=== PATIENT | male | born 1945 | race Caucasian/White ===

== ENCOUNTER → 2016-09-10 | Outpatient (CLI) | payer BC ==
[~2016-09-10] MED LIST: ASPCH81X PO; ASPI81TA82 PO; ATOR-24 PO; CHOL200010 PO; COEN1CAP17 PO; FLAXOIL2 PO; INSPMPHMLG; LEVO150T PO; LEVO200T PO; LISI20TA3 PO; LISI40TA PO; MULT-513 PO; OMEG100046 PO; ROSU40TA PO
--- NOTE | 2016-09-10 09:33 | DIAGNOSTIC IMAGING REPORT ---
ULTRASOUND EXAM AAA SCREEN CLINICAL HISTORY: AAA SCREENING,X-SMOKER COMPARISON STUDY: CT scan dated 09/13/2012 FINDINGS: The proximal aorta was nonvisualized. There is no evidence of aortic dilatation involving the mid or distal abdominal aorta. The maximal aortic diameter was 2 cm. There is no evidence of iliac artery aneurysm. IMPRESSION: No evidence of abdominal aortic aneurysm. Electronically signed by: Derek Guerrier M.D. 09/10/2016 9:31 AM Dictated Date/Time: 09/10/2016 8:35 AM
== END | disposition home or self-care (01) ==
LOC: C.ULTR 07:43
PROVIDERS: ATTEND Family Medicine
DX: E11.9 Type 2 diabetes mellitus without complications (principal); I10 Essential (primary) hypertension; E03.9 Hypothyroidism, unspecified; E78.5 Hyperlipidemia, unspecified

== ENCOUNTER 2017-02-26 09:50 | Emergency (ER) | payer BC ==
[~2017-02-26] VITALS: Ht 180.3 cm; Wt 83.3 kg
[~2017-02-26 09:50] MED LIST changes: -ASPI81TA82 PO; -ATOR-24 PO; -FLAXOIL2 PO; -LEVO200T PO; -LISI20TA3 PO; -OMEG100046 PO
[2017-02-26 09:58] VITALS: TEMP 36.6; O2SAT 100; Ht 180.3 cm; Wt 83.3 kg
[2017-02-26] MEDS ORDERED: SODIUM CHLORIDE 0.9% 1000ML 1,000 ML IV STA (09:59)
[2017-02-26 10:09] LABS: BASO % 0.4 %; BASO ABS # 0.03 K/uL (0-0.2); COMPLETE YES; EOS % 2.5 %; IG% 0.4 %; LYMPH ABS # 0.98 K/uL (1.2-3.4); MEAN CELL VOLUME 92.6 fL (80-100); MEAN CORPUSCULAR HEMOGLOBIN 30.7 pg (25-34); MEAN CORPUSCULAR HGB CONC 33.1 g/dl (32-36); MEAN PLATELET VOLUME 9.9 fL (7.4-10.4); MONO % 10.3 %; NEUT % 74.4 %; PLATELET COUNT 170 K/uL (130-400); RED BLOOD COUNT 3.78 M/uL (4.7-6.1); WHITE BLOOD COUNT 8.16 K/uL (4.8-10.8)
[2017-02-26 10:20] LABS: INR 1.1 (0.9-1.1); PARTIAL THROMBOPLASTIN RATIO 0.9; PROTHROMBIN TIME (PATIENT) 11.9 SECONDS (9.0-12.0)
--- NOTE | 2017-02-26 10:27 | EMERGENCY ROOM VISIT NOTE ---
History Report prepared by Kimberley: Kelsy Holt Under the Supervision of: Dr. Krishna Lynn D.O. First contact with patient: 09:51 Stated Complaint: SYNCOPE - N/V History of Present Illness The patient is a 71 year old male who presents to the Emergency Room with complaints of an episode of syncope occurring DISPATCH COORDINATOR. The patient was getting out of the shower when he suddenly began to feel dizzy, nauseated, and unwell. He denies feeling like the room was spinning. He denies any memory of falling. The next thing he remembers is waking up on the ground. heard him fall and then a few moments later he began to call for help. The patient was brought to the ED by ambulance for further evaluation. He was given Zofran PO en route and states that this has helped to alleviate some of his nausea. He reports that sitting up makes him feel lightheaded. He states that his mouth feels very dry at this time and he is feeling just generally weak all over. He notes that he has had a recent cold with coughing and chills. The patient denies any injury from his fall. He denies headache, fevers, neck pain, chest pain, shortness of breath, back pain, abdominal pain, melena, and hematochezia. He has a history of DM and his BSG was 163 DISPATCH COORDINATOR per EMS. The patient had a similar syncopal episode 2 weeks ago. He was seen in the ED at that time and was diagnosed with dehydration. He followed up with Dr. Quinteros of cardiology and states that everything was normal at that appointment. He denies any recent changes to his medications or any new medications. Source of History: patient, spouse/significant other, EMS Onset: DISPATCH COORDINATOR Position: other (global) Quality: other (syncope) Timing: other (episode) Associated Symptoms: + LOC, + chills, + cough, + nausea, + weakness, No fevers, No headache, No neck pain, No chest pain, No SOB, No abdominal pain, No back pain, No melena, No hematochezia Note: Pt notes dizziness. Review of Systems See HPI for pertinent positives & negatives. A total of 10 systems reviewed and were otherwise negative. Past Medical & Surgical Medical Problems: (1) Acute gastritis (2) DIAB JEANNETTE WO COMPL, TYPE I [JUVENILE TYPE], NOT UNCNTRLD (3) History of prostate cancer (4) HYPERLIPIDEMIA NEC/NOS (5) HYPERTENSION NOS (6) Partial small bowel obstruction Family History Heart disease Social History Smoking Status: Unknown if Ever Smoked Alcohol Use: none Drug Use: none Marital Status: Housing Status: lives with family Occupation Status: retired Current/Historical Medications Scheduled Aspirin (Aspirin Chewable), 81 MG PO BID Cholecalciferol (Vitamin D), 2,000 UNITS PO DAILY Coenzyme Q10 (Ubidecarenone) (Co Q 10), 200 MG PO DAILY Insulin Human Lispro (Insulin Humalog Pump ), 1 EA N/A UD Levothyroxine Sodium (Synthroid), 150 MCG PO DAILY Lisinopril (Prinivil), 40 MG PO DAILY Multivitamins/Minerals (Mvi With Minerals), 1 TAB PO DAILY Rosuvastatin Calcium (Crestor), 40 MG PO HS Allergies Coded Allergies: No Known Allergies (Unverified , 02/26/17) Physical Exam Vital Signs Date Time Temp Pulse Resp B/P (MAP) Pulse Ox O2 Delivery O2 Flow Rate FiO2 02/26/17 13:30 88 18 154/76 98 Room Air 02/26/17 13:04 86 18 147/71 94 Room Air 02/26/17 12:06 88 16 144/73 94 Room Air 02/26/17 11:30 88 14 155/71 95 Room Air 02/26/17 10:43 87 18 128/66 99 Room Air 02/26/17 10:17 75 126/56 85 138/67 02/26/17 10:05 78 02/26/17 09:58 100 Room Air 02/26/17 09:58 36.6 79 14 120/56 100 Room Air Physical Exam GENERAL: Patient is awake, alert, and in no acute distress. Patient is resting comfortably and showing no signs of anxiety EYES: The conjunctivae are clear. The pupils are round and reactive. EARS, NOSE, MOUTH AND THROAT: The nose is without any evidence of any deformity. Mucous membranes are moist tongue is midline NECK: The neck is nontender and supple. RESPIRATORY: Normal respiratory effort is noted there is no evidence of wheezing rhonchi or rales CARDIOVASCULAR: Regular rate and rhythm noted there no murmurs rubs or gallops normal S1 normal S2 GASTROINTESTINAL: The abdomen is soft. Bowel sounds are present in all quadrants. Abdomen is nontender BACK: No midline tenderness or or step-off noted range of motion in flexion extension as well as rotation no signs of muscle spasm noted MUSCULOSKELETAL/EXTREMITIES: There is no evidence of gross deformity full range of motion is noted in the hips and shoulders SKIN: There were linear abrasions over the thoracic spine superficially, no tenderness or bleeding was noted. There is no obvious evidence of any rash. There are no petechiae, pallor or cyanosis noted. NEUROLOGIC: Patient is awake alert and oriented x3 strength is symmetric patellar reflexes are 2+ bilaterally Medical Decision & Procedures ER Provider Diagnostic Interpretation: Radiology results as stated below per my review and radiologist interpretation: CT HEAD WITHOUT CONTRAST (CT) CLINICAL HISTORY: R mental status, weakness, syncope, nausea, vomiting. COMPARISON STUDY: 09/13/2012 TECHNIQUE: Axial CT of the brain is performed from the vertex to the skull base. IV contrast was not administered for this examination. A dose lowering technique was utilized adhering to the principles of ALARA. CT DOSE: 614.27 mGy.cm FINDINGS: No intra or extra-axial mass lesions are visualized. There is no CT evidence of acute cortical infarction. There is no evidence of midline shift. There is no acute hemorrhage. No calvarial fractures are visualized. There are patchy white matter hypodensities likely on a small vessel basis. There is no evidence of pathologic ventricular dilatation. There is mild mucosal thickening within the left maxilla sinus. There is a small right maxillary sinus air-fluid level. IMPRESSION: 1. Inflammatory changes within the maxillary sinuses with a small right maxillary sinus air-fluid level 2. No acute intracranial findings. Electronically signed by: Derek Guerrier M.D. 02/26/2017 10:44 AM Dictated Date/Time: 02/26/2017 10:42 AM CHEST ONE VIEW PORTABLE CLINICAL HISTORY: Altered mental status. Weakness. COMPARISON STUDY: 02/09/2017 FINDINGS: The cardiac and mediastinal contours are normal. There is no evidence of focal pulmonary consolidation. There is no evidence of failure. No pleural effusions are visualized.[ Linear opacities the left lung base are felt to be atelectatic. IMPRESSION: Minimal left basilar atelectatic change. No active disease in the chest. Electronically signed by: Derek Guerrier M.D. 02/26/2017 10:39 AM Dictated Date/Time: 02/26/2017 10:39 AM Laboratory Results 02/26/17 09:59 Red Blood Count 3.78, Mean Corpuscular Volume 92.6, Mean Corpuscular Hemoglobin 30.7, Mean Corpuscular Hemoglobin Concent 33.1, Mean Platelet Volume 9.9, Neutrophils (%) (Auto) 74.4, Lymphocytes (%) (Auto) 12.0, Monocytes (%) (Auto) 10.3, Eosinophils (%) (Auto) 2.5, Basophils (%) (Auto) 0.4, Neutrophils # (Auto ) 6.08, Lymphocytes # (Auto) 0.98, Monocytes # (Auto) 0.84, Eosinophils # (Auto ) 0.20, Basophils # (Auto) 0.03 02/26/17 09:59 Test 02/26/17 09:39 02/26/17 09:59 02/26/17 13:46 Lyme Disease IgG Antibody NEG (NEG) Lyme Disease IgM Antibody NEG (NEG) White Blood Count 8.16 K/uL (4.8-10.8) Red Blood Count 3.78 M/uL (4.7-6.1) Hemoglobin 11.6 g/dL (14.0-18.0) Hematocrit 35.0 % (42-52) Mean Corpuscular Volume 92.6 fL (80-100) Mean Corpuscular Hemoglobin 30.7 pg (25-34) Mean Corpuscular Hemoglobin Concent 33.1 g/dl (32-36) Platelet Count 170 K/uL (130-400) Mean Platelet Volume 9.9 fL (7.4-10.4) Neutrophils (%) (Auto) 74.4 % Lymphocytes (%) (Auto) 12.0 % Monocytes (%) (Auto) 10.3 % Eosinophils (%) (Auto) 2.5 % Basophils (%) (Auto) 0.4 % Neutrophils # (Auto) 6.08 K/uL (1.4-6.5) Lymphocytes # (Auto) 0.98 K/uL (1.2-3.4) Monocytes # (Auto) 0.84 K/uL (0.11-0.59) Eosinophils # (Auto) 0.20 K/uL (0-0.5) Basophils # (Auto) 0.03 K/uL (0-0.2) RDW Standard Deviation 45.2 fL (36.4-46.3) RDW Coefficient of Variation 13.4 % (11.5-14.5) Immature Granulocyte % (Auto) 0.4 % Immature Granulocyte # (Auto) 0.03 K/uL (0.00-0.02) Prothrombin Time 11.9 SECONDS (9.0-12.0) Prothromb Time International Ratio 1.1 (0.9-1.1) Activated Partial Thromboplast Time 24.6 SECONDS (21.0-31.0) Partial Thromboplastin Ratio 0.9 Anion Gap 9.0 mmol/L (3-11) Est Creatinine Clear Calc Drug Dose 70.0 ml/min Estimated GFR () 84.3 Estimated GFR (Non- 72.7 BUN/Creatinine Ratio 14.9 (10-20) Calcium Level 8.9 mg/dl (8.5-10.1) Phosphorus Level 2.1 mg/dl (2.5-4.9) Magnesium Level 2.0 mg/dl (1.8-2.4) Total Bilirubin 0.6 mg/dl (0.2-1) Direct Bilirubin 0.1 mg/dl (0-0.2) Aspartate Amino Transf (AST/SGOT) 21 U/L (15-37) Alanine Aminotransferase (ALT/SGPT) 13 U/L (12-78) Alkaline Phosphatase 75 U/L (45-117) Total Creatine Kinase 98 U/L (39-308) Creatine Kinase MB 1.7 ng/ml (0.5-3.6) Creatine Kinase MB Ratio 1.7 (0-3.0) Troponin I < 0.015 ng/ml (0-0.045) Total Protein 6.9 gm/dl (6.4-8.2) Albumin 3.3 gm/dl (3.4-5.0) Thyroid Stimulating Hormone (TSH) 4.890 uIu/ml (0.300-4.500) Free Thyroxine 1.72 ng/dl (0.80-1.60) Urine Color YELLOW Urine Appearance CLEAR (CLEAR) Urine pH 6.5 (4.5-7.5) Urine Specific [place]ley 1.014 (1.000-1.030) Urine Protein NEG (NEG) Urine Glucose (UA) 1+ (NEG) Urine Ketones 2+ (NEG) Urine Occult Blood NEG (NEG) Urine Nitrite NEG (NEG) Urine Bilirubin NEG (NEG) Urine Urobilinogen NEG (NEG) Urine Leukocyte Esterase NEG (NEG) Laboratory results per my review. Medications Administered Medications (Trade) Dose Ordered Sig/Stanley Route Start Time Stop Time Status Last Admin Dose Admin Sodium Chloride 1,000 ml @ 999 mls/hr Q1H1M STAT IV 02/26/17 09:59 02/26/17 10:59 DC 02/26/17 10:16 999 MLS/HR Ondansetron HCl (Zofran Inj) 4 mg NOW STAT IV 02/26/17 10:46 02/26/17 10:47 DC 02/26/17 10:59 4 MG ECG Indication: syncope Rate (beats per minute): 66 Rhythm: sinus with SA Findings: no acute ischemic change, no ectopy Comparison ECG Date: 02/09/17 Change: SA is new compared to previous. ED Course 0951: The patient was evaluated in room B3B. A complete history and physical examination were performed. 0959: NSS 1000 ml @ 999 mls/hr IV 1046: Zofran 4 mg IV 1145: Upon reevaluation the patient is resting comfortably. He is still getting lightheaded when he sits up and his blood pressure decreases. I will consult cardiology. 1203: I discussed the case with Dr. Carbajal of cardiology. Dr. Carbajal will come to the ED to evaluate the patient. 1259: I spoke with Dr. Carbajal again at this time regarding the patient's treatment plan. He felt that the patient could be discharged and follow-up as an outpatient if he is feeling better. 1323: I reassessed the patient at this time. He is feeling better and resting comfortably. I discussed the results and treatment plan with the patient. I answered all pertaining questions that he had. He expressed understanding and verbalized agreement. The patient will be discharged home. Medical Decision Differential diagnosis: Etiologies such as vasovagal event, infection, hypoglycemia, electrolyte abnormalities, cardiac sources, intracerebral event, toxicologic, neurologic, as well as others were entertained. Nursing notes reviewed. Additional history is obtained from the patient's family member. The patient is a 71-year-old male who presented to the emergency department after having a syncopal episode. The patient continued to have nausea upon arrival to the emergency. He had some episodes of bradycardia but he did not have a block noted on EKG or on cardiac rhythm monitoring. I discussed the patient's laboratory and radiographic studies with him. He had symptoms upon standing and was treated with IV fluids. He was seen in our emergency department recently with similar complaints. I discussed his case with the on- call [facility] orthopedic physician assistant. He was evaluated in the emergency department by the cardiology's. The patient had an echocardiogram previously. I discussed follow-up with the patient and encouraged him to rest and avoid any strenuous activity. He was also encouraged to call his primary care physician in the morning to schedule a follow-up appointment. Otherwise she was encouraged to return to the emergency Department immediately if symptoms change worsen or the need arises. Medication Reconcilliation Current Medication List: was personally reviewed by me Blood Pressure Screening Patient's blood pressure: Normal blood pressure Consults Time Called: 1155 Consulting Physician: Dr. Carbajal Returned Call: 1203 I discussed the case with Dr. Carbajal of cardiology. Dr. Crabajal will come to the ED to evaluate the patient. Additional Consults: Time Called: 1259 Consulted Physician: Dr. Carbajal Returned Call: 1259 Additional Comments: I spoke with Dr. Carbajal again at this time regarding the patient's treatment plan. He felt that the patient could be discharged and follow-up as an outpatient if he is feeling better. Impression Primary Impression: Syncope Additional Impressions: Sinus arrhythmia Back contusion Back abrasion Scribe Attestation The scribe's documentation has been prepared under my direction and personally reviewed by me in its entirety. I confirm that the note above accurately reflects all work, treatment, procedures, and medical decision making performed by me. Departure Information Dispostion Home / Self-Care Referrals Kehinde Morales M.D. (PCP) Forms HOME CARE DOCUMENTATION FORM, IMPORTANT VISIT INFORMATION Patient Instructions My [facility], Syncope Additional Instructions Rest and avoid any strenuous activity. Call your family to schedule a follow -up appointment. Drink plenty clear liquids. Return to the emergency department immediately if symptoms change worsen or the need arises. Problem Qualifiers Primary Impression: Syncope Syncope type: unspecified Qualified Codes: R55 - Syncope and collapse Additional Impressions: Back contusion Encounter type: initial encounter Laterality: unspecified laterality Qualified Codes: S20.229A - Contusion of unspecified back wall of thorax, initial encounter Back abrasion Encounter type: initial encounter Laterality: unspecified laterality Qualified Codes: S20.419A - Abrasion of unspecified back wall of thorax, initial encounter
[2017-02-26 10:33] LABS: ALT/SGPT 13 U/L (12-78); BLOOD UREA NITROGEN 15 mg/dl (7-18); BUN/CREATININE RATIO 14.9 (10-20); CALCIUM 8.9 mg/dl (8.5-10.1); CARBON DIOXIDE 25 mmol/L (21-32); CHLORIDE 102 mmol/L (98-107); CREATININE 1.03 mg/dl (0.60-1.40); GLUCOSE 164 mg/dl (70-99); POTASSIUM 4.1 mmol/L (3.5-5.1); SODIUM 136 mmol/L (136-145)
[2017-02-26 10:41] LABS: ALKALINE PHOSPHATASE 75 U/L (45-117); AST/SGOT 21 U/L (15-37); CKMB/CK RATIO 1.7 (0-3.0); PHOSPHORUS 2.1 mg/dl (2.5-4.9)
--- NOTE | 2017-02-26 10:41 | DIAGNOSTIC IMAGING REPORT ---
CHEST ONE VIEW PORTABLE CLINICAL HISTORY: Altered mental status. Weakness. COMPARISON STUDY: 02/09/2017 FINDINGS: The cardiac and mediastinal contours are normal. There is no evidence of focal pulmonary consolidation. There is no evidence of failure. No pleural effusions are visualized.[ Linear opacities the left lung base are felt to be atelectatic. IMPRESSION: Minimal left basilar atelectatic change. No active disease in the chest. Electronically signed by: Derek Guerrier M.D. 02/26/2017 10:39 AM Dictated Date/Time: 02/26/2017 10:39 AM
--- NOTE | 2017-02-26 10:45 | DIAGNOSTIC IMAGING REPORT ---
CT HEAD WITHOUT CONTRAST (CT) CLINICAL HISTORY: R mental status, weakness, syncope, nausea, vomiting. COMPARISON STUDY: 09/13/2012 TECHNIQUE: Axial CT of the brain is performed from the vertex to the skull base. IV contrast was not administered for this examination. A dose lowering technique was utilized adhering to the principles of ALARA. CT DOSE: 614.27 mGy.cm FINDINGS: No intra or extra-axial mass lesions are visualized. There is no CT evidence of acute cortical infarction. There is no evidence of midline shift. There is no acute hemorrhage. No calvarial fractures are visualized. There are patchy white matter hypodensities likely on a small vessel basis. There is no evidence of pathologic ventricular dilatation. There is mild mucosal thickening within the left maxilla sinus. There is a small right maxillary sinus air-fluid level. IMPRESSION: 1. Inflammatory changes within the maxillary sinuses with a small right maxillary sinus air-fluid level 2. No acute intracranial findings. Electronically signed by: Derek Guerrier M.D. 02/26/2017 10:44 AM Dictated Date/Time: 02/26/2017 10:42 AM
[2017-02-26] MEDS ORDERED: ONDANSETRON INJ 2 MG/ML 2 ML VIAL IV STA (10:46)
[2017-02-26 11:36] LABS: LYME DISEASE AB IGG NEG (NEG); LYME DISEASE AB IGM NEG (NEG)
[2017-02-26 13:30] VITALS: BP 154/76; PULSE 88; O2SAT 98
[2017-02-26 14:18] LABS: URINE APPEARANCE CLEAR (CLEAR); URINE BILIRUBIN NEG (NEG); URINE COLOR YELLOW; URINE NITRITE NEG (NEG); URINE PH 6.5 (4.5-7.5); URINE SPECIFIC GRAVITY 1.014 (1.000-1.030); UROBILINOGEN NEG (NEG)
[2017-02-26 14:22] LABS: MANUAL MICROSCOPIC REQUIRED? NO; REVIEW REQ? NO
== END 2017-02-26 14:07 | disposition home or self-care (01) ==
LOC: EDBD 09:50 → C.EDB 09:51
DX: R55 Syncope and collapse (principal); I49.8 Other specified cardiac arrhythmias; S20.229A Contusion of unspecified back wall of thorax, initial encounter; S20.419A Abrasion of unspecified back wall of thorax, initial encounter; W19.XXXA Unspecified fall, initial encounter; I10 Essential (primary) hypertension; E10.9 Type 1 diabetes mellitus without complications; E78.5 Hyperlipidemia, unspecified; K56.609 Unspecified intestinal obstruction, unspecified as to partial versus complete obstruction; Z85.46 Personal history of malignant neoplasm of prostate; Z87.19 Personal history of other diseases of the digestive system; Z79.82 Long term (current) use of aspirin; Z79.4 Long term (current) use of insulin; Z79.899 Other long term (current) drug therapy; Z82.49 Family history of ischemic heart disease and other diseases of the circulatory system

== ENCOUNTER → 2017-06-19 | Outpatient (CLI) | payer BC ==
--- NOTE | 2017-06-19 12:43 | DIAGNOSTIC IMAGING REPORT ---
NUCLEAR GASTRIC EMPTYING STUDY HISTORY: Diabetes. Assess for gastroparesis. COMPARISON: Abdomen and pelvis CT 09/13/2012. TECHNIQUE: Following the oral administration of 1.1 mCi of technetium 99m sulfur colloid in egg sandwich and 8 ounces of water, static abdominal images are obtained anteriorly and posteriorly at 0 minutes, 1 hour, 2 hour, and 4 hour time intervals. Gastric emptying was calculated utilizing the geometric mean method. FINDINGS: There is approximately 70% activity remaining at the 1 hour time interval (normal is less than 90%), 43% remaining at the 2 hour time interval (normal is less than 60%), and 0% activity remaining at the 4 hour time interval (normal is less than 10%). IMPRESSION: No evidence for delayed gastric emptying. Electronically signed by: Danie Ramirez M.D. 06/19/2017 12:42 PM Dictated Date/Time: 06/19/2017 12:41 PM
== END | disposition home or self-care (01) ==
LOC: C.NUCL 07:52
PROVIDERS: ATTEND Internal Medicine
DX: E10.9 Type 1 diabetes mellitus without complications (principal); Z96.41 Presence of insulin pump (external) (internal)

== ENCOUNTER 2024-05-27 10:00 | Observation (INO) ==
--- NOTE | 2024-05-27 10:32 | Emergency Department Note ---
Impression & Plan Syncope Admission ED Provider Note HPI: History obtained from patient. The patient is a 78-year-old gentleman with history of insulin-dependent diabetes, presents the emergency department after syncopal event this morning. Patient states he got up to go to the bathroom in his house this morning he felt very faint and dizzy, he states he passed out and lost consciousness and fell on the bathroom floor. EMS was contacted and on their arrival the patient had a blood sugar in the 70s, patient's blood sugar on arrival here to the ED is 229 on [id number] testing at the bedside. Patient states he still feels "lightheaded" but denies any chest pain or shortness of breath. Patient is unsure whether or not he hit his head, he denies any headache. Patient is hypertensive on arrival but otherwise hemodynamically stable. He is saturating well on room air. Patient does not have any focal deficits on arrival. ROS: - Per HPI Differential Diagnosis: Vasovagal syncope, arrhythmia to include SVT, atrial fibrillation with RVR, ventricular tachycardia, high degree heart block, hypoglycemic event, seizure, ACS, amongst other potential pathologies. *Outpatient medications and allergy history reviewed. PE: General: Alert HEENT: Normocephalic, trachea midline Eyes: Extraocular eye movement is intact, no scleral erythema Pulmonary: Clear to auscultation bilaterally, no wheezing Cardio: Regular rate and rhythm GI: Abdomen is soft to palpation : No suprapubic tenderness MSK: No evidence of trauma or malformation of the extremities, no edema Skin: No evidence of rash Neuro: Alert, no focal deficits, equal bilateral linux kernel developer strength, symmetrical facial movements are appreciated Psychiatric: Cooperative INDEPENDENT INTERPRETATIONS: traditional chinese herbalist: (As interpreted by myself): - An order was placed for continuous cardiac monitoring - Patient was noted to be in sinus rhythm with a rate of 60 EKG: (As interpreted by myself): Rate: 62 Rhythm: Sinus rhythm with first-degree AV block Intervals: NJ interval 246 ms, otherwise within normal limits ST changes: No ST elevation Time: 1011 Chest x-ray: (As interpreted by myself): No acute disease Interventions provided in ED: -IV fluid bolus Medical Decision Making: Patient appears well on my initial assessment here in the ED, IV was established and lab work obtained, patient was placed on house carpenter. Lab work shows no leukocytosis, hemoglobin is stable at 11.8, platelet count is normal, CMP shows glucose of 232, otherwise no critical findings are noted, troponin is negative, there is no transaminitis or acute kidney injury. Patient has a soft abdomen on my exam, I do not feel that CT imaging of the abdomen pelvis is indicated at this time, despite the patient's nausea. CT imaging of the head was obtained that is negative for any acute process. On my reassessment the patient stated that he felt well however shortly after he was ambulated by the bedside RN, he again became nauseous and complained of some lightheadedness. Repeat blood sugar check at this time was 240. Given the patient's continued symptoms, I did discuss his presentation with the on-call hospitalist, Dr. Brown, the patient was admitted in stable condition for further care and workup of syncope. Consultants/Discussions held with other healthcare providers: -Hospitalist, Dr. Brown Disposition discussion held by myself with: -Patient Diagnosis: 1. Syncopal event, acute, nonspecific 2. Nausea, acute 3. History of insulin-dependent diabetes, on insulin pump 4. Hyperglycemia without DKA, acute Disposition: Admission Genaro Morris DO Emergency Medicine Past Med/Surg History Problem List (Updated 05/27/24 @ 13:44 by Marika Aguilera PA-C) T1DM (type 1 diabetes mellitus) Vomiting (Acute) Back abrasion (Acute) Back contusion (Acute) Sinus arrhythmia (Acute) Syncope (Acute) Medical History (Updated 05/27/24 @ 13:44 by Marika Aguilera PA-C) Hypothyroidism Hyperlipidemia H/O: HTN (hypertension) Social History Smoking Status: Never smoker Second Hand Exposure: No; Do You Dip or Chew Tobacco: No; Tobacco Cessation Education Requested by Patient: No Hx Alcohol Use: No Hx Substance Use: No Preferred Language: Thai Communication Ability: Effective Concrete Sculptor Required: No Beliefs That Will Affect Care: None Current Living Situation: Spouse Other Information That Helps Us Care for You: No Feels Safe at Home: Yes Safety Concerns: Feels Safe At This Time Assistive Devices: Oxygen - at Night Assistive Devices Comment: home insuin pump tandem t slim x2 and dexacon glucometer Allergies Allergies Allergy/AdvReac Type Severity Reaction Status Date / Time No Known Allergies Allergy Unverified 02/26/17 10:06 Home Meds Home Medications Medication Instructions Recorded Confirmed CHOLECALCIFEROL (VITAMIN D) 2,000 unit PO DAILY ##0 09/12/12 05/27/24 COENZYME Q10 (UBIDECARENONE) (CO Q 200 mg PO DAILY ##0 09/12/12 05/27/24 10) Multivitamins/Minerals (Mvi With 1 tab PO DAILY ##0 09/12/12 05/27/24 Minerals) Insulin Human Lispro (Insulin 1 dose Not Applicable UD ##0 09/13/12 05/27/24 Humalog Pump ) ASPIRIN (ASPIRIN CHEWABLE) 81 mg PO DAILY ##0 02/09/17 05/27/24 LEVOTHYROXINE SODIUM (SYNTHROID) 150 mcg PO DAILY ##0 02/09/17 05/27/24 Lisinopril (Prinivil) 40 mg PO DAILY ##0 02/09/17 05/27/24 ROSUVASTATIN CALCIUM (CRESTOR) 40 mg PO HS ##0 02/09/17 05/27/24 Results & Data (ED) Vital Signs Vital Signs - 24 hr 05/27/24 10:13 05/27/24 10:13 05/27/24 10:24 Temperature 36.4 C L Temperature Source Oral Pulse Rate 64 66 Pulse Rate [Apical] Pulse Rhythm [Apical] Respiratory Rate 16 Respiratory Effort / Characteristics Non-Labored Spontaneous Respiratory Depth Normal Blood Pressure 191/89 H Blood Pressure [Right Arm] Blood Pressure Mean 123 Blood Pressure Mean [Right Arm] Blood Pressure Position Sitting Pulse Oximetry 100 Oxygen Delivery Method Room Air Room Air Sepsis Recent Fever Within 48 Hours No Sepsis New/Unexplained Change in Mental Status N/A Sepsis Action Taken by Nursing No Action Required 05/27/24 11:00 05/27/24 12:00 05/27/24 14:00 Temperature Temperature Source Pulse Rate Pulse Rate [Apical] 70 77 Pulse Rhythm [Apical] Regular Respiratory Rate 16 16 Respiratory Effort / Characteristics Non-Labored Non-Labored Respiratory Depth Normal Normal Blood Pressure Blood Pressure [Right Arm] 143/110 H 157/83 H Blood Pressure Mean Blood Pressure Mean [Right Arm] 121 107 Blood Pressure Position Pulse Oximetry 99 99 Oxygen Delivery Method Room Air Room Air Sepsis Recent Fever Within 48 Hours Sepsis New/Unexplained Change in Mental Status Sepsis Action Taken by Nursing 05/27/24 14:20 05/27/24 15:00 Temperature Temperature Source Pulse Rate 79 71 Pulse Rate [Apical] Pulse Rhythm [Apical] Respiratory Rate 19 Respiratory Effort / Characteristics Respiratory Depth Blood Pressure 151/84 H Blood Pressure [Right Arm] Blood Pressure Mean 106 Blood Pressure Mean [Right Arm] Blood Pressure Position Pulse Oximetry Oxygen Delivery Method Sepsis Recent Fever Within 48 Hours Sepsis New/Unexplained Change in Mental Status Sepsis Action Taken by Nursing Laboratory Data 05/27/24 10:15 05/27/24 10:15 Lab Results 05/27/24 05/27/24 05/27/24 Range/Units 10:15 10:18 10:27 WBC 6.44 (4.8-10.8) K/ul RBC 3.98 L (4.70-6.10) M/uL Hgb 11.8 L (14.0-18.0) g/dl Hct 36.7 L (42.0-52.0) % MCV 92.2 (80.0-100.0) fL MCH 29.6 (25.0-34.0) pg MCHC 32.2 (32.0-36.0) g/dL RDW Std Deviation 47.5 H (36.4-46.3) fL RDW Coeff of Tree 13.9 (11.5-14.5) % Plt Count 189 (130-400) K/uL MPV 9.7 (9.4-12.4) fL Immature Gran % (Auto) 0.3 % Neut % (Auto) 65.9 % Lymph % (Auto) 18.5 % [place]asta % (Auto) 12.1 % Eos % (Auto) 2.6 % Baso % (Auto) 0.6 % Neut # (Auto) 4.24 (1.40-6.50) K/uL Lymph # (Auto) 1.19 L (1.20-3.40) K/uL [place] # (Auto) 0.78 H (0.11-0.59) K/uL Eos # (Auto) 0.17 (0.00-0.50) K/uL Baso # (Auto) 0.04 (0.00-0.20) K/uL Immature Gran # (Auto) 0.02 (0.01-0.20) K/uL Sodium 138 (136-145) mmol/L Potassium 4.4 (3.5-5.1) mmol/L Chloride 102 (98-107) mmol/L Carbon Dioxide 27 (21-32) mmol/L Anion Gap 9 (3-11) BUN 22 (6-23) mg/dl Creatinine 1.02 (0.6-1.4) mg/dl Est Cr Clr Drug Dosing 63.6 ml/min eGFR 75.23 BUN/Creatinine Ratio 21.6 H (10-20) Glucose 232 H (70-99(Fasting)) mg/dl POC Glucose 249 H 229 H (70-99) mg/dl Calcium 9.3 (8.6-10.3) mg/dl Total Bilirubin 0.6 (0.2-1.0) mg/dl AST 24 (13-39) U/L ALT 9 (7-52) U/L Alkaline Phosphatase 59 (34-104) U/L Troponin I High Sens 4.5 (0-20) pg/ml Total Protein 6.8 (6.0-8.3) gm/dl Albumin 3.9 (3.4-5.0) gm/dl Globulin 2.9 (2.5-4.0) gm/dl Albumin/Globulin Ratio 1.3 (0.9-2) Lipase 12 (11-82) U/L TSH 7.146 H (0.300-4.500) uIu/ml SARS-CoV-2 (PCR) (Negative) Influenza Type A (PCR) (Neg) Influenza Type B (PCR) (Neg) RSV (RT-PCR) (Neg) 05/27/24 Range/Units 13:10 WBC (4.8-10.8) K/ul RBC (4.70-6.10) M/uL Hgb (14.0-18.0) g/dl Hct (42.0-52.0) % MCV (80.0-100.0) fL MCH (25.0-34.0) pg MCHC (32.0-36.0) g/dL RDW Std Deviation (36.4-46.3) fL RDW Coeff of Tree (11.5-14.5) % Plt Count (130-400) K/uL MPV (9.4-12.4) fL Immature Gran % (Auto) % Neut % (Auto) % Lymph % (Auto) % [place]asta % (Auto) % Eos % (Auto) % Baso % (Auto) % Neut # (Auto) (1.40-6.50) K/uL Lymph # (Auto) (1.20-3.40) K/uL [place] # (Auto) (0.11-0.59) K/uL Eos # (Auto) (0.00-0.50) K/uL Baso # (Auto) (0.00-0.20) K/uL Immature Gran # (Auto) (0.01-0.20) K/uL Sodium (136-145) mmol/L Potassium (3.5-5.1) mmol/L Chloride (98-107) mmol/L Carbon Dioxide (21-32) mmol/L Anion Gap (3-11) BUN (6-23) mg/dl Creatinine (0.6-1.4) mg/dl Est Cr Clr Drug Dosing ml/min eGFR BUN/Creatinine Ratio (10-20) Glucose (70-99(Fasting)) mg/dl POC Glucose (70-99) mg/dl Calcium (8.6-10.3) mg/dl Total Bilirubin (0.2-1.0) mg/dl AST (13-39) U/L ALT (7-52) U/L Alkaline Phosphatase (34-104) U/L Troponin I High Sens (0-20) pg/ml Total Protein (6.0-8.3) gm/dl Albumin (3.4-5.0) gm/dl Globulin (2.5-4.0) gm/dl Albumin/Globulin Ratio (0.9-2) Lipase (11-82) U/L TSH (0.300-4.500) uIu/ml SARS-CoV-2 (PCR) NEGATIVE (Negative) Influenza Type A (PCR) Negative (Neg) Influenza Type B (PCR) Negative (Neg) RSV (RT-PCR) Negative (Neg) Administered Medications Aspirin (Aspirin 81 Mg Ectab) 81 mg PO DAILY [facility] Stop: 06/26/24 15:59 Last Admin: 05/27/24 16:22 Dose: 81 mg Documented By: JDR Sodium Chloride (Nss) 500 mls @ 80 mls/hr IV .Q6H15M [facility] Stop: 05/27/24 19:44 Last Admin: 05/27/24 14:45 Dose: 80 mls/hr Documented By: HB Levothyroxine Sodium (Levothyroxine Sodium 150 Mcg Tablet) 150 mcg PO DAILYBB MIKAYLA Stop: 06/26/24 15:59 Last Admin: 05/27/24 16:22 Dose: 150 mcg Documented By: GENEVIEVE Lisinopril (Lisinopril 40 Mg Tab) 40 mg PO DAILY MIKAYLA Stop: 06/26/24 15:59 Last Admin: 05/27/24 16:22 Dose: 40 mg Documented By: GENEVIEVE Discontinued Medications Sodium Chloride (Nss) 1,000 mls @ 999 mls/hr IV .Q1H1M ONE Stop: 05/27/24 11:30 Last Infusion: 05/27/24 11:40 Dose: Infused Documented By: Admin: 05/27/24 10:47 Dose: 999 mls/hr Documented By: MELIA Prochlorperazine (Compazine) 1 mls @ 1 mls/min IV ONE ONE Stop: 05/27/24 10:51 Last Admin: 05/27/24 11:00 Dose: 1 mls/min Documented By: MELIA Imaging Data Radiologist's Impression: Chest X-Ray 05/27/24 10:30 XR chest 1V portable CLINICAL HISTORY: syncope COMPARISON STUDY: Chest radiograph February 26, 2017. FINDINGS: Lung volumes are normal. Lungs are clear. There is no pneumothorax or pleural effusion. Cardiac size is normal. Mediastinal contours are normal. There is no evidence for pulmonary edema. IMPRESSION: No acute cardiopulmonary findings. ACT 112: Negative or not required by law. Electronically signed by: Deon Subramanian M.D. 05/27/2024 11:[address] 05/27/24 10:30 CT OF THE HEAD WITHOUT CONTRAST CLINICAL HISTORY: syncope COMPARISON STUDY: Head CT February 26, 2017. CT DOSE: 625.8 mGy.cm TECHNIQUE: Helical axial images of the head were obtained without IV contrast. Automated exposure control was utilized for the study. A dose lowering technique was utilized adhering to the principles of ALARA. FINDINGS: No acute intracranial hemorrhage, midline shift or mass effect is present. White matter hypodensities are unchanged and favor small vessel disease. The ventricular system is unremarkable. The basal cisterns are patent. No extra-axial collections are present. There are no findings to suggest acute dural sinus thrombosis or acute territorial infarct. No significant calvarial abnormalities are present. Visualized portions of the sinuses and mastoid air cells are clear. IMPRESSION: No acute intracranial findings. ACT 112: Negative or not required by law. Electronically signed by: Deon Subramanian M.D. 05/27/2024 11:22 AM Discharge Plan Visit Data Chief Complaint: Syncope Stated Complaint: SYNCOPE ED Provider: Genaro Morris Discharge Problem: Syncope Patient Disposition: Admitted As Inpatient Condition: Good Discharge Instructions Interventions: ED Discharge Assessment Last Done: 05/27/24 15:00
[2024-05-27] MEDS: SODIUM CHLORIDE 0.9% 1,000 ML IV ONE (10:47)
[2024-05-27 10:55] LABS: Basophils # (auto) 0.04 K/uL (0.00-0.20); Basophils % (auto) 0.6 %; Eosinophils # (auto) 0.17 K/uL (0.00-0.50); Eosinophils % (auto) 2.6 %; Hematocrit (blood only) 36.7 % (42.0-52.0); Hemoglobin 11.8 g/dl (14.0-18.0); Immature Granulocytes # (auto) 0.02 K/uL (0.01-0.20); Immature Granulocytes % (auto) 0.3 %; Lymphocytes # (auto) 1.19 K/uL (1.20-3.40); Lymphocytes % (auto) 18.5 %; Mean Corpuscular Hemoglobin 29.6 pg (25.0-34.0); Mean Corpuscular Hgb Conc 32.2 g/dL (32.0-36.0); Mean Corpuscular Volume 92.2 fL (80.0-100.0); Mean Platelet Volume 9.7 fL (9.4-12.4); Monocytes # (auto) 0.78 K/uL (0.11-0.59); Monocytes % (auto) 12.1 %; Neutrophils # (auto) 4.24 K/uL (1.40-6.50); Neutrophils % (auto) 65.9 %; Platelet Count 189 K/uL (130-400); RDW Coefficient of Variation 13.9 % (11.5-14.5); RDW Standard Deviation 47.5 fL (36.4-46.3); Red Blood Count 3.98 M/uL (4.70-6.10); White Blood Count 6.44 K/ul (4.8-10.8)
[2024-05-27] MEDS: PROCHLORPERAZINE 1 ML IV ONE (11:00)
--- NOTE | 2024-05-27 11:01 | XRay Report ---
XR chest 1V portable CLINICAL HISTORY: syncope COMPARISON STUDY: Chest radiograph February 26, 2017. FINDINGS: Lung volumes are normal. Lungs are clear. There is no pneumothorax or pleural effusion. Car diac size is normal. Mediastinal contours are normal. There is no evidence for pulmonary edema. IMPRESSION: No acute cardiopulmonary findings. ACT 112: Negative or not required by law. Electronically signed by: Deon Subramanian M.D. 05/27/2024 11:00 AM
[2024-05-27 11:05] LABS: Albumin Globulin Ratio 1.3 (0.9-2); Albumin Level 3.9 gm/dl (3.4-5.0); BUN Creatinine Ratio 21.6 (10-20); Bilirubin,Total 0.6 mg/dl (0.2-1.0); Calcium 9.3 mg/dl (8.6-10.3); Creatinine Clr Calc Pharmacy 63.6 ml/min; Globulin 2.9 gm/dl (2.5-4.0); Potassium 4.4 mmol/L (3.5-5.1); Total Protein 6.8 gm/dl (6.0-8.3)
[2024-05-27 11:10] LABS: Troponin I High Sensitivity 4.5 pg/ml (0-20)
--- NOTE | 2024-05-27 11:24 | CT Scan Report ---
CT OF THE HEAD WITHOUT CONTRAST CLINICAL HISTORY: syncope COMPARISON STUDY: Head CT February 26, 2017. CT DOSE: 625.8 mGy.cm TECHNIQUE: Helical axial images of the head were obtained without IV contrast. Automated exposure con trol was utilized for the study. A dose lowering technique was utilized adhering to the principles o f ALARA. FINDINGS: No acute intracranial hemorrhage, midline shift or mass effect is present. White matter hyp odensities are unchanged and favor small vessel disease. The ventricular system is unremarkable. The basal cisterns are patent. No extra-axial collections are present. There are no findings to suggest a cute dural sinus thrombosis or acute territorial infarct. No significant calvarial abnormalities are present. Visualized portions of the sinuses and mastoid air cells are clear. IMPRESSION: No acute intracranial findings. ACT 112: Negative or not required by law. Electronically signed by: Deon Subramanian M.D. 05/27/2024 11:22 AM
--- NOTE | 2024-05-27 11:58 | Electrocardiogram Report ---
Test Reason : Blood Pressure : */* mmHG Vent. Rate : 62 BPM Atrial Rate : 62 BPM P-R Int : 246 ms QRS Dur : 70 ms QT Int : 434 ms P-R-T Axes : 77 35 53 degrees QTcB Int : 440 ms Sinus rhythm with 1st degree A-V block Otherwise normal ECG When compared with ECG of 26-Feb-2017 10:11, LA interval has increased Confirmed by Ron Carbajal ([id number]) on 05/27/2024 11:57:55 AM Referred By: Confirmed By: Ron Carbajal
--- NOTE | 2024-05-27 12:50 | History & Physical Report ---
Date of Service May 27, 2024 Assessment & Plan (1) Syncope: (2) Vomiting: (3) T1DM (type 1 diabetes mellitus): Plan Patient is a 78-year-old woman with past medical history of T1DM, HTN, hypothyroidism, HLD. He presents due to a syncopal episode this morning. Patient has been nauseous and vomiting since. He is being admitted for a syncopal workup. #syncope Not on any blood thinners thought to be 2/2 hypoglycemia - BSG 73 with EMS, 249 on arrival to ED with no intervention EKG showed sinus rhythm with 1st degree AV block; no previous to compare to Troponin negative CT head ad CXR negative Electrolytes stable echo ordered fluids overnight - 1L NSS bolus in ED, continue with 500ml NSS at 80ml/hr and promote oral hydration orthostatics in AM monitor on telemetry #nausea and vomiting likely 2/2 event above lipase WNL, no abdominal tenderness low concern for serotonin syndrome - has been on sertraline for 2-3 years covid/flu/rsv ordered TSH ordered Zofran prn clear liquid diet #T1DM continue home insulin pump BSG ACHS with monitoring not transmitting/ possibly caused syncopal episode Chronic stable diagnoses: HTN - continue lisinopril Hypothyroidism - continue levothyroxine HLD - continue statin and baby ASA VTE ppx: SCDs, low risk and obs status Diet: Clears, advance as tolerated with nausea Dispo: med [email or web address] obs - anticipate dc home 05/28 Admission and Anticipated Discharge Date Admission Date: 05/27/24 History of Present Illness Chief Complaint: syncope Primary Care Provider: Kehinde Morales Patient is a 78-year-old woman with past medical history of T1DM, HTN, hypo thyroidism, HLD. He presents due to a syncopal episode this morning. Patient has been nauseous and vomiting since. He is being admitted for a syncopal workup. Patient seen at bedside. He stated that at 6 AM he got up to go to the bathroom and became lightheaded after so he sat in his chair. He remembers is finding himself on the floor and he was sweating profusely. His came in and found him and called EMS. EMS noted BSG of 73 but on arrival to the ED it was 249. He has not had anything to eat today. He has been nauseous and vomiting since. He did have some relief in the late morning and tried to ambulate to prepare for discharge. Patient then became lightheaded and nauseous so he laid back in bed. His nausea was relieved with Compazine in ED. Regarding his glucose, patient has insulin pump and continuous monitor. However at bedside monitor was not transmitting, which she states occasionally happens and then it comes back. Patient's at home to get replacement. He stated about 80 to 90% of the time his glucose was monitored well. Patient denies fever, chills, rhinorrhea, sore throat, cough, dyspnea, chest pain, abdominal pain, diarrhea, constipation, dysuria, hematuria. He denies any sick contacts however was visiting his [id number]-xad at [facility] couple days ago and may have had viral exposures. Patient also noted that he had elevated blood pressure with SBP 180, repeat 156. Systolic blood pressure typically ranges between 130-140. Patient does not use nicotine products or drink alcohol. He denies past history of previous VTE. He did not take any of his home medications this morning; ordered on admission. He wishes to be full code. He has had no recent medication changes. He has been on sertraline for 2 to 3 years, low concern for serotonin syndrome. Patient denies any past history of cardiac arrhythmias, first-degree AV block noted on EKG. He did state about 15 years ago at [facility] he had EKG changes and underwent a cardiac cath however they determined that it was a false positive on the EKG. With nausea control, patient would like to try eating some crackers and clear liquids. Allergies Allergy/AdvReac Type Severity Reaction Status Date / Time No Known Allergies Allergy Unverified 02/26/17 10:06 Home Medications Medication Instructions Recorded Confirmed Type CHOLECALCIFEROL (VITAMIN D) 2,000 unit PO DAILY ##0 09/12/12 05/27/24 History COENZYME Q10 (UBIDECARENONE) (CO Q 200 mg PO DAILY ##0 09/12/12 05/27/24 History 10) Multivitamins/Minerals (Mvi With 1 tab PO DAILY ##0 09/12/12 05/27/24 History Minerals) Insulin Human Lispro (Insulin 1 dose Not Applicable UD ##0 09/13/12 05/27/24 History Humalog Pump ) ASPIRIN (ASPIRIN CHEWABLE) 81 mg PO DAILY ##0 02/09/17 05/27/24 History LEVOTHYROXINE SODIUM (SYNTHROID) 150 mcg PO DAILY ##0 02/09/17 05/27/24 History Lisinopril (Prinivil) 40 mg PO DAILY ##0 02/09/17 05/27/24 History ROSUVASTATIN CALCIUM (CRESTOR) 40 mg PO HS ##0 02/09/17 05/27/24 History Past Med/Surg History Problem List (Updated 05/27/24 @ 13:44 by Marika Aguilera PA-C) T1DM (type 1 diabetes mellitus) Vomiting (Acute) Back abrasion (Acute) Back contusion (Acute) Sinus arrhythmia (Acute) Syncope (Acute) Medical History (Updated 05/27/24 @ 13:44 by Marika Aguilera PA-C) Hypothyroidism Hyperlipidemia H/O: HTN (hypertension) Social History Smoking Status: Never smoker Second Hand Exposure: No; Do You Dip or Chew Tobacco: No; Tobacco Cessation Education Requested by Patient: No Hx Alcohol Use: No Hx Substance Use: No Preferred Language: Indonesian Communication Ability: Effective Dental Ceramist Assistant Required: No Beliefs That Will Affect Care: None Current Living Situation: Spouse Other Information That Helps Us Care for You: No Feels Safe at Home: Yes Safety Concerns: Feels Safe At This Time Assistive Devices: Oxygen - at Night Assistive Devices Comment: home insuin pump tandem t slim x2 and dexacon glucometer Review of Systems Review of Systems: see HPI Physical Exam Physical Exam: The patient is awake, alert and oriented 3, well developed and well nourished, normocephalic and atraumatic, in no acute distress. Non-toxic appearing. HEENT- EOMI, mucous membranes dry. Hearing grossly intact. Heart-normal S1 and S2. No murmurs, rubs or gallops. Lungs-clear bilaterally, no respiratory distress, no accessory muscle use. Abdomen-normal bowel sounds and soft. No ascites noted. Non-tender. Extremities- no clubbing, cyanosis, or edema. Rheumatologic-normal range of motion. Psychiatric-normal affect. Results & Data Results & Data Vital Signs (Past 12 Hours) Vital Signs Temp Pulse Pulse Resp BP BP Pulse Ox 05/27/24 12:00 70 16 143/110 H 99 05/27/24 11:00 99 05/27/24 10:24 66 05/27/24 10:13 05/27/24 10:13 36.4 C L 64 16 191/89 H 100 O2 Del Method 05/27/24 12:00 Room Air 05/27/24 11:00 Room Air 05/27/24 10:24 05/27/24 10:13 Room Air 05/27/24 10:13 Room Air Laboratory Results Provide CBC, CMP, troponin Diagnostic Findings reviewed CXR and head CT Medications Administered ed - Compazine 1ml IV and 1l NSS bolus ECG Additional Comments: sinus rhythm with first-degree AV block rate 62 QTc 440 Code Status & VTE Plan Code Status full code VTE Prophylaxis Plan VTE Prophylaxis will be ordered: Yes Supervising Physician Co-Signing Physician Notes I personally saw and examined the patient. I independently reviewed the labs, EKG, imaging, problem list, medication list, past medical history and family history. I verified all [place] points and agree with Marika Aguilera PA-C with the following exceptions and/or additions: 78 year old male presents to the ER following a syncopal event this morning. Feeling well prior to this. Presyncope prior to syncope. O/E HS RRR, no murmurs, Chest CTAB, Abdo SNT A/P Syncope - suspect vasovagal related to nausea and micturition. TTE reassuring. Continue his usual lisinopril given current BP elevated and get orthostatics AM. PG Care Time/CCT Total # of Minutes Spent Total Time Spent with Patient: Total time spent is greater than 50% in coordination of care (as documented) at patient's floor/unit and/or counseling patient: Coding Level of Care Code 85709 INT INP/OBS CARE 3/75MIN Diagnoses Syncope R55 Vomiting R11.10 T1DM (type 1 diabetes mellitus) E10.9
--- OUTSIDE RECORDS SUMMARY | 2024-05-27 12:59 | External Medical Summary | Continuity of Care Document ---
Author Name Unknown Organization [id number] Address [address] [place] [id number] Care Team Providers Care Issuer Name Role Phone Kehinde Morales Primary Care Physician [phone] Encounter [facility] [id number] Date(s): 01/23/24 - 01/23/24 [facility] [address] [facility] [address] [facility] [address] [address] Encounter Diagnosis Neck pain(Discharge Diagnosis) - 01/23/24 Shoulder pain(Discharge Diagnosis) - 01/23/24 Discharge Disposition: Home or Self Care Attending Physician: MD Tucker Jesse Allergies, Adverse Reactions, Alerts No Known Allergies Immunizations Given and Recorded Vaccine Date Status Refusal Reason RSV Vaccine Unspecified 12/23/23 Recorded influenza virus vaccine, inactivated 12/23/23 Jj rded influenza virus vaccine, inactivated 1 12/14/22 Re corded influenza virus vaccine, inactivated 02/21/22 Jj rded influenza virus vaccine, inactivated 12/07/20 Jj rded influenza virus vaccine, inactivated 2 01/29/20 Re corded influenza virus vaccine, inactivated 01/28/19 Jj rded influenza virus vaccine, inactivated 01/28/18 Give n influenza virus vaccine, inactivated 12/25/16 Give n influenza virus vaccine, inactivated 12/26/15 Give n influenza virus vaccine, inactivated 01/04/15 Give n influenza virus vaccine, inactivated 01/08/14 Give n influenza virus vaccine, inactivated 02/05/13 Give n influenza virus vaccine, inactivated 01/01/12 Give n SARS-CoV-2 (COVID-19) mRNA-vacc - [id number] 12/16/23 Recorded zoster vaccine, inactivated 3 05/28/22 Recorded zoster vaccine, inactivated 02/21/22 Recorded SARS-CoV-2 (COVID-19) mRNA BNT-162b2 vax 4 12/13/20 Recorded tetanus/diphtheria/pertuss, acel (Tdap) 5 04/11/19 Recorded tetanus/diphtheria/pertuss, acel (Tdap) 05/25/11 G iven pneumococcal 23-valent vaccine 06/12/18 Given pneumococcal 23-valent vaccine 09/28/11 Given pneumococcal 13-valent vaccine 06/15/14 Given hepatitis B adult vaccine 04/15/12 Given hepatitis B adult vaccine 10/29/11 Given hepatitis B adult vaccine 09/28/11 Given zoster vaccine live 10/22/11 Given 1Result Comment: [facility] 2Result Comment: [facility] Pharmacy 3Result Comment: [facility] 4Result Comment: 2021-02-16: Historical information-source unspecified 5Result Comment: [facility] pharmacy Medications aspirin 81 mg oral tablet Start: 05/25/11 1:41:00 PM EST, 1 tab, PO, Daily Start Date: 05/25/11 Status: Ordered BD 0.5 mL Ultra-Fine II Short Insulin Syringe 31G x 5/16" Start: 06/20/21 10:30:00 AM EDT, See Instructions, Disp# 100 each, Refills: 3, use PRN for pump failure, Pharmacy: [facility]/pharmacy #[id number] Start Date: 06/20/21 Status: Ordered Centrum Silver oral tablet Start: 05/25/11 1:41:00 PM EST, 1 tab, PO, Daily Start Date: 05/25/11 Status: Ordered Co Q-10 Start: 12/23/13 1:41:00 PM EDT, See Instructions, 200 mg, 1 tab po daily Start Date: 12/23/13 Status: Ordered cyanocobalamin Start: 12/19/23 11:39:00 AM EDT Start Date: 12/19/23 Status: Ordered Dexcom G6 Sensor Kit Start: 05/14/22 9:04:00 AM EST, See Instructions, Disp# 3 kit, Refills: 3, change sensor every 10 days, Note to Pharmacy: 1 kit = 3 sensors, Pharmacy: [facility]/pharmacy #[id number] Start Date: 05/14/22 Status: Ordered Dexcom G6 Transmitter Kit Start: 05/14/22 9:05:00 AM EST, See Instructions, Disp# 1 kit, Refills: 3, use as directed, [id number] Start Date: 05/14/22 Status: Ordered Gvoke HypoPen 1 mg/0.2 mL subcutaneous solution Start: 08/12/20 11:45:00 AM EDT, See Instructions, Disp# 2 each, Refills: 1, use PRN for severe hypoglycemia, [id number] Start Date: 08/12/20 Status: Ordered HumaLOG Vial 100 units/mL injectable solution Start: 07/24/23 4:22:00 PM EDT, See Instructions, Disp# 50 mL, Refills: 3, USE 50 UNITS UNDER THE SKIN DAILY VIA INSULIN PUMP, Pharmacy: [facility] Start Date: 07/24/23 Status: Ordered Lantus Vial 100 units/mL subcutaneous solution Start: 12/27/22 11:44:00 AM EDT, 12 unit =, subQ, Daily, Disp# 10 mL, Refills: 3, PRN in case of pump failure, [id number] Start Date: 12/27/22 Status: Ordered levothyroxine 137 mcg (0.137 mg) oral tablet Start: 10/03/23 3:46:00 PM EDT, 1 tab, PO, Daily, Disp# 90 tab, Refills: 4, Pharmacy: [id number] Start Date: 10/03/23 Status: Ordered lisinopril 30 mg oral tablet Start: 10/08/23 2:26:00 PM EDT, 1 tab, PO, Daily, Disp# 90 tab, Refills: 4, Pharmacy: [id number] Start Date: 10/08/23 Status: Ordered melatonin 3 mg oral tablet Start: 09/26/18 9:14:00 AM EDT, 1 tab, PO, qhs, PRN: Insomnia Start Date: 09/26/18 Status: Ordered One Touch Verio Test Strips Start: 12/27/22 11:46:00 AM EDT, See Instructions, Disp# 200 each, Refills: 5, check BG 2 x daily, Pharmacy: [facility]/pharmacy #[id number] Start Date: 12/27/22 Status: Ordered rosuvastatin 40 mg oral tablet Start: 10/08/23 2:20:00 PM EDT, 1 tab, PO, Daily, Disp# 90 tab, Refills: 4, Pharmacy: [facility]/pharmacy #[id number] Start Date: 10/08/23 Status: Ordered sertraline 50 mg oral tablet Start: 01/06/24 12:53:00 PM EDT, 1 tab, PO, Daily, Disp# 90 tab, Refills: 1, Pharmacy: [id number] Start Date: 01/06/24 Status: Ordered Sutab oral tablet Start: 09/06/22 6:27:00 AM EDT, See Instructions, Disp# 24 tab, Refills: 0, Follow endoscopy instructions for bowel prep. [employer] Medicare Coupon: BIN: [id number] PCN: [id number] Group: [id number] Member: [id number], Note to Pharmacy: [employer] Medicare Coupon: BIN: [id number]; PCN: [id number]; Group: [id number]; Member: [id number], Pharmacy: [facility] #[id number] Start Date: 09/06/22 Status: Ordered Turmeric Start: 03/18/18 1:18:00 PM EST, Turmeric, See Instructions, 500 mg, 1 cap po daily Start Date: 03/18/18 Status: Ordered Vitamin D3 2000 intl units oral capsule Start: 05/25/11 1:40:00 PM EST, See Instructions, 2 cap po daily Start Date: 05/25/11 Status: Ordered Mental Status 01/23/24 Barriers to Learning one year None evide nt Mandatory Health Literacy Documentation Yes Health Literacy Communication Barriers N ever Primary Language Nepali Problem List Condition Confirmation Course Effective Dates Status H ealth Status Informant Azotemia Confirmed Active Hemorrhoids without complication Confirmed Active History of prostate cancer Confirmed Active Hyperlipidemia Confirmed Active HTN (hypertension) Confirmed Active Hypothyroidism Confirmed Active ED (erectile dysfunction) Confirmed Active 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 Diagnosis Diagnosis Type Effective Dates Health Status Cl inical Service Informant Neck pain Discharge Diagnosis 01/23/24 Non-Specified Shoulder pain Discharge Diagnosis 01/23/24 Non-Specified Procedures Procedure Date Related Diagnosis Body Site Status Colonoscopy 1 09/17/[address] of pelvis 2 06/19/17 Completed Colonoscopy 3 05/13/17 Completed Chest x-ray 4 02/26/17 Completed Computed tomography of head without contrast (procedure) 02/26/[address] brain w/o contrast 5 02/26/[address] head w/o contrast 6 02/26/17 Co mpleted Emergency medical services 7 02/26/17 Completed Plain chest X-ray (procedure) 02/26/17 Completed Chest x-ray 8 02/09/17 Completed Emergency medical services 9 02/09/17 Completed Plain chest X-ray (procedure) 02/09/17 Completed US ABDL AORTA SCREEN AAA 10 09/10/16 Completed US scan of abdominal aorta (procedure) 09/10/16 Completed FIT TEST 11, 12 04/02/16 Completed EKG 13 03/08/15 Completed KUB X-ray 14 03/08/15 Completed CEIOL - Cataract extraction and insertion of intraocular lens 15 07/02/12 Completed skull x-ray-no mets 05/16/12 Compl eted Implantation of radioactive seed into prostate 04/2012 Completed EKG 16 03/08/12 Completed prostate biopsy 02/20/12 Completed eye exam-no retinopathy 10/18/11 C ompleted Abdomenal US-No AAA 17 10/16/11 Co mpleted Thumb surgery, right 07/07/11 Comp leted Thumb surgery, left 12/14/08 Compl eted Cystectomy 18 07/23/08 Completed Colonoscopy 19 07/19/06 Completed COLONOSCOPY -WNL except hemorrhoids 07/19/06 Completed Cardiac Cath--WNL 04/08/95 Complet ed Stress ECHO--FALSE POSITIVE- -Normal CATH 04/08/95 Completed 1COLO to cecum, redundant, repeat colo 5 years. 2no evidince for delayed gastric emptying 3One 5mm polyp at the hepatic flexure, removed with a cold biopsy forceps. Resected and retrieved. The examined portion of the ileum was normal The distal rectum and anal verge are normal on retroflexion view. Diverticulosis in the sigmoid colon The examinations was otherwise normal 4minimal left basilar atelectatic change. No active disease in the chest 5Inflammatory changes within the maxillary sinuses with a small right maxillary sinus air-fluid level. No acute intracranial findings 6No masses are visualized. There is no CT evidence of acute cortical infarction, There is no evidence of midline shift. There is no acute hemorrhage. 7episode of syncopy 8no active disease in the chest 9flu like sx-rapid flu negative. Discharged home 10no evidence of abdominal aortic aneurysm 11negative for blood 12by mail -[facility] 13normal sinus rythum 14Nonobstructed abdominal bowel gas pattern 15Left eye Right eye done on 09/17/12 16normal sinus rythum 17Male with Hx Smoking 18From top of head 19repeat 10 years per colonoscopy report Social History Social History Type Response Smoking Status Never smoked cigaret ezekiel Sex Male Sex Representation Male (finding) Patient Care team information Care Team Personnel Name: MD Carmen, Kehinde Roland Position: Physician - Family Med Member Role: Primary Care Provider Address: [facility] [address] [place] [address] [place] Name: MD Meghana, Chance Mccracken Position: Physician - Sports Medicine [place] Member Role: Lifetime Relationship Address: [address] [place] [address] [place] Care Team Related Persons Name: LORAINE MERCER
--- OUTSIDE RECORDS SUMMARY | 2024-05-27 12:59 | External Medical Summary | Continuity of Care Document ---
Author Name Unknown Organization [facility] [address] [place] [phone] Care Team Providers Care Lab Technician Name Role Phone Kehinde Morales Primary Care Physician [phone] [facility] [id number] Date(s): 12/19/23 - 12/19/23 [facility] 0 [facility] 207 [facility] [address] [phone] Encounter Diagnosis Body mass index [BMI] 26.0-26.9, adult(Discharge Diagnosis) - 12/19/23 Discharge Disposition: Home or Self Care Attending Physician: MD Morales Michael P Allergies, Adverse Reactions, Alerts No Known Allergies Immunizations Given and Recorded Vaccine Date Status Refusal Reason SARS-CoV-2 (COVID-19) mRNA-vacc - [id number] 12/16/23 Recorded influenza virus vaccine, inactivated 1 12/14/22 Re [...] influenza virus vaccine, inactivated 01/01/12 Give n zoster vaccine, inactivated 3 05/28/22 Recorded zoster [...] zoster vaccine live 10/22/11 Given 1Result Comment: [facility] 2Result Comment: [facility] Pharmacy 3Result Comment: [facility] 4Result Comment: 2021-02-16: Historical information-source unspecified 5Result Comment: [facility] pharmacy Medications aspirin 81 mg oral tablet Start: 05/25/11 1:41:00 PM EST, 1 tab, PO, Daily Start Date: 05/25/11 Status: Ordered BD 0.5 mL Ultra-Fine II Short Insulin Syringe 31G x 5/16" Start: 06/20/21 10:30:00 AM EDT, See Instructions, Disp# 100 each, Refills: 3, use PRN for pump failure, Pharmacy: [facility]/pharmacy #[id number] Start Date: 06/20/21 Status: Ordered Centrum Silver [...] Pharmacy: 1 kit = 3 sensors, Pharmacy: [facility]/pharmacy #[id number] Start Date: 05/14/22 Status: Ordered Dexcom G6 Transmitter Kit Start: 05/14/22 9:05:00 AM EST, See Instructions, Disp# 1 kit, Refills: 3, use as directed, Pharmacy:[facility]/pharmacy #[id number] Start Date: 2/6/23 Status: Ordered Gvoke HypoPen 1 mg/0.2 mL subcutaneous solution Start: 08/12/20 11:45:00 AM EDT, See Instructions, Disp# 2 each, Refills: 1, use PRN for severe hypoglycemia, [id number] Start Date: 08/12/20 Status: Ordered HumaLOG Vial 100 units/mL injectable solution Start: 07/24/23 4:22:00 PM EDT, See Instructions, Disp# 50 mL, Refills: 3, USE 50 UNITS UNDER THE SKIN DAILY VIA INSULIN PUMP, Pharmacy: [email or web address] Start Date: 07/24/23 Status: Ordered Lantus Vial 100 units/mL subcutaneous solution Start: 12/27/22 11:44:00 AM EDT, 12 unit =, subQ, Daily, Disp# 10 mL, Refills: 3, PRN in case of pump failure, [id number] Start Date: 12/27/22 Status: Ordered levothyroxine 137 mcg (0.137 mg) oral tablet Start: 10/03/23 3:46:00 PM EDT, 1 tab, PO, Daily, Disp# 90 tab, Refills: 4, Pharmacy: [id number] Start Date: 10/03/23 Status: Ordered lisinopril 30 mg oral tablet Start: 10/08/23 2:26:00 PM EDT, 1 tab, PO, Daily, Disp# 90 tab, Refills: 4, Pharmacy: [id number] Start Date: 10/08/23 Status: Ordered melatonin 3 mg oral tablet Start: 09/26/18 9:14:00 AM EDT, 1 tab, PO, qhs, PRN: Insomnia Start Date: 09/26/18 Status: Ordered One Touch Verio Test Strips Start: 12/27/22 11:46:00 AM EDT, See Instructions, Disp# 200 each, Refills: 5, check BG 2 x daily, [id number] Start Date: 12/27/22 Status: Ordered rosuvastatin 40 mg oral tablet Start: 10/08/23 2:20:00 PM EDT, 1 tab, PO, Daily, Disp# 90 tab, Refills: 4, [id number] Start Date: 10/08/23 Status: Ordered sertraline 50 mg oral tablet Start: 07/24/23 6:29:00 PM EDT, 1 tab, PO, Daily, Disp# 90 tab, Refills: 1, Pharmacy: [id number] Start Date: 07/24/23 Status: Ordered Sutab oral tablet Start: 09/06/22 6:27:00 AM EDT, See Instructions, Disp# 24 tab, Refills: 0, Follow endoscopy instructions for bowel prep. S[employer]ab Medicare Coupon: BIN: [id number] PCN: [id number] Group: [id number] Member: [id number], Note to Pharmacy: [facility] Medicare Coupon: BIN: [id number]; PCN: [id number]; Group: [id number]; Member: [id number], Pharmacy: [facility]/pharmacy #[id number] Start Date: 09/06/22 Status: Ordered Turmeric Start: 03/18/18 1:18:00 PM EST, Turmeric, See Instructions, 500 mg, 1 cap po daily Start Date: 03/18/18 Status: Ordered Vitamin D3 2000 intl units oral capsule Start: 05/25/11 1:40:00 PM EST, See Instructions, 2 cap po daily Start Date: 05/25/11 Status: Ordered Mental Status 12/19/23 Barriers to Learning one year None evide nt Communication Barrier Present No Health Literacy Communication Barriers N ever Primary Language Bel[place]an Problem List Condition Confirmation Course Effective Dates [...] Dates Health Status Cl inical Service Informant Body mass index [BMI] 26.0-26.9, adult Discharge Diagnosis 12/19/23 Non-Specified Procedures Procedure Date Related Diagnosis Body [...] head 19repeat 10 years per colonoscopy report Vital Signs Most recent to oldest [Reference Range]: 1 Height 176.1 cm (12/19/23 11:40 AM) Patient Weight 82.4 kg (12/19/23 11:40 AM) Body Mass Index 26.57 kg/m2 (12/19/23 11:40 AM) Heart Rate 68 bpm (12/19/23 11:40 AM) Respiratory Rate 18 br/min (12/19/23 11:40 AM) Blood Pressure 142/88mmHg (12/19/23 11:40 AM) BP Location # 1 Left Arm (12/19/23 11:40 AM) Social History Social History Type Response Smoking Status Never smoked cigaret ezekiel Sex Male Sex Representation Male (finding) Medicare Annual Wellness Visit Note * MD Carmen, Kehinde P: PERFORM Event Display: Medicare Annual Wellness Visit Note Authored Date: [id number] Name:MARQUEZ NORRIS Patient Number: [id number] : 1945 Date of Service: 12/19/2023 Medicare Annual Wellness Visit Subsequent MAWV: Any MAWV performed after the Initial x_ Additional diagnosis with separately identified service provided per additional note. Vitals & Measurements HR:68(Monitored) RR:18 BP:142/88 SpO2:98% HT:176.1cm WT:82.4kg WT:82.400kg(Dosing) BMI:26.57 The Patient's BMI is over 25 which is considered overweight. _Based on shared decision-making, no further intervention will be pursued at this time. _This is a chronic problem and is addressed in continuity. _xRecommendations for resources, monitoring, support, safety, and surveillance were reviewed. Check BP at home daily and message me in 2 weeks _This warrants further evaluation at a follow-up or concurrent visit. Pain Assessment Pain Score: 5 Pain Severity: Moderate Acceptable pain score: 0 Opioid use Assessment: Opioid use and pain severity reviewed in medication reconciliation and vital signs. Chart review and inquiry of patient finds NO USE of opioids. PHQ2 Data(Data Documented on:12/19/2023 11:40) Emotional health assessment NEGATIVE Patient Self/Mood Assessment: _ xBased on shared decision-making, no further intervention will be pursued at this time. _ This is a chronic problem and is addressed in continuity. _ Recommendations for resources, monitoring, support, safety, and surveillance were reviewed. _ This warrants further evaluation at a follow-up or concurrent visit. Assessment/Plan Hearing Screening Do you have any hearing problems, or have others told you that you might?None Comments Struggle to hear/understand conversation? No Have any known hearing problems? No Hearing Assessment PROVIDER DIRECT OBSERVATION-MUST COMPLETE _xNo hearing problems were directly observed with this patient today. _Hearing problems were observed with this patient today and the plan is: _. PLAN-MUST COMPLETE FOR POSITIVE FINDING FROM PATIENT OR DIRECT OBSERVATION _xBased on shared decision-making, no further intervention will be pursued at this time. _This is a chronic problem and is addressed in continuity. _Recommendations for resources, monitoring, support, safety, and surveillance were reviewed. _This warrants further evaluation at a follow-up or concurrent visit. Orientation Memory Concentration Test (OMCT) Orientation Score Indication:None or no significant cognitive impairment (0-4) Cognitive Screening (IF OMCT 0-4, no further assessment required) x_Based on shared decision-making, no further intervention will be pursued at this time. _This is a chronic problem and is addressed in continuity. _Recommendations for resources, monitoring, support, safety, and surveillance were reviewed. _This warrants further evaluation at a follow-up or concurrent visit. Activities of Daily Living Assistance Assessment Comments Do you need help using the phone? No Do you need help managing your finances? No Do you need help shopping? (clothes, groceries, etc.) No Do you find you need help that is not available to you? No Do you need help preparing meals? No Do you need help keeping track of and taking your medications? No Do you need help getting to bed or to the toilet? No Do you need help to eat, bathe, or dress? No Do you need help walking? No Do you need help with transportation? No Do you ever go without a seatbelt in the car? No Do you need help with doing housework (cleaning, laundry)? No ADL/IADL Assessment PROVIDER DIRECT OBSERVATION-MUST COMPLETE _xThe patient did not require help in the office today (e.g. with iADL/ADLs). _Patient required assistance in the office today (e.g. with iADL/ADLs) and the plan is: _. PLAN-MUST COMPLETE FOR POSITIVE FINDING FROM PATIENT OR DIRECT OBSERVATION _xBased on shared decision-making, no further intervention will be pursued at this time. _This is a chronic problem and is addressed in continuity. _Recommendations for resources, monitoring, support, safety, and surveillance were reviewed. _This warrants further evaluation at a follow-up or concurrent visit. Falls Assessment Are you permanently unable to walk? No Have you fallen more than once in the past year? No Have you fallen and hurt yourself in the past year? No Is it hard for you to climb stairs or walk short distances? No Do any of these potential fall hazards exist in your home? None Do these safety features exist in your home? (e.g. bathroom grab bars, stair handrails) Bathroom grab bars, Stair handrails Falls Assessment PROVIDER DIRECT OBSERVATION-MUST COMPLETE _xThere was no difficulty with the patients ambulation observed today. _The patient was observed to have difficulty with ambulation today. The plan is: _. PLAN-MUST COMPLETE FOR POSITIVE FINDING FROM PATIENT OR DIRECT OBSERVATION _xBased on shared decision-making, no further intervention will be pursued at this time. _This is a chronic problem and is addressed in continuity. _Recommendations for resources, monitoring, support, safety, and surveillance were reviewed. _This warrants further evaluation at a follow-up or concurrent visit. Incontinence Plan Comments Do you have difficulty getting to the bathroom on time? No Do you leak urine when you do not want to, such as when coughing, sneezing, laughing? No Do you leak urine while sleeping? No Incontinence Assessment x_Based on shared decision-making, no further intervention will be pursued at this time. _This is a chronic problem and is addressed in continuity. _Recommendations for resources, monitoring, support, safety, and surveillance were reviewed. _This warrants further evaluation at a follow-up or concurrent visit. Patient Health Self Assessment (Indicate in Comments for each red/positive response an assessment and plan for the patient) COUNSELING/PLAN/REFERRAL Have you seen a dental or orthodontic provider in the last year? Yes Do you always wear a seat belt in moving vehicles? Yes Do you exercise at least 150 minutes a week? Yes Do you consider your diet unhealthy? No Do you use tobacco? No Have you had 5 or more servings of alcohol in one day within the past year? No Do you use illegal street or prescription drugs? No Do you have a new sexual partner this year? No Are you having difficulty completing or enjoying sex? Yes ED --Defers eds Would you consider your overall health to be poor? No Do you feel disappointed with your life as it is? No Do you feel you have poor sleep? No Do you often feel lonely? No Do you struggle with your temper? No Does pain impact your life? No Do you often feel tired during the day? No Advance Directive End of Life Discussion No qualifying data available. If no qualifying data available, choose a discussion and planning intervention below. The patient indicated that they have an Advance Directive and will submit a copy for the medical record. Advance Care Planning (ACP) Discussion Discussed advance directives for 3 min Patient Education Discussed BP control Language Barrier/Educational Preference Barriers to Learning one year: None evident Communication Barrier Present: No Educational Needs Assessed one year: Yes Health Literacy Communication Barriers: Never Learning Preferences one year: Verbal Explanation, Demonstration - Model Simulation Primary Language: Bel[place]an Medications Medication Reconciliation Not Complete Click the house icon to return to your workflow and complete the medication reconciliation. Once complete, return to this note and click the refresh icon to the right of the Medications Header. The patients preferred pharmacy has been reviewed and confirmed. Home aspirin(aspirin 81 mg oral tablet), 81 mg= 1 tab, PO, Daily cholecalciferol(Vitamin D3 2000 intl units oral capsule), See Instructions cyanocobalamin diabetes supplies(One Touch Verio Test Strips), See Instructions, 5 refills diabetes supplies(Dexcom G6 Sensor Kit), See Instructions, 3 refills diabetes supplies(Dexcom G6 Transmitter Kit), See Instructions, 3 refills glucagon(Gvoke HypoPen 1 mg/0.2 mL subcutaneous solution), See Instructions, 1 refills insulin glargine(Lantus Vial 100 units/mL subcutaneous solution), 12 unit, subQ, Daily, 3 refills insulin lispro(HumaLOG Vial 100 units/mL injectable solution), See Instructions levothyroxine(levothyroxine 137 mcg (0.137 mg) oral tablet), 1 tab, PO, Daily lisinopril(lisinopril 30 mg oral tablet), 1 tab, PO, Daily magnesium sulfate/potass Cl/sodium sulf(Sutab oral tablet), See Instructions melatonin(melatonin 3 mg oral tablet), 3 mg= 1 tab, PO, qhs, PRN multivitamin with minerals(Centrum Silver oral tablet), 1 tab, PO, Daily rosuvastatin(rosuvastatin 40 mg oral tablet), 1 tab, PO, Daily, 4 refills sertraline(sertraline 50 mg oral tablet), 1 tab, PO, Daily syringe(BD 0.5 mL Ultra-Fine II Short Insulin Syringe 31G x 5/16"), See Instructions, 3 refills ubiquinone(Co Q-10), See Instructions unlisted medication(Turmeric), See Instructions Problem List/Past Medical History Ongoing Azotemia ED (erectile dysfunction) Health care maintenance Hemorrhoids without complication History of prostate cancer HTN (hypertension) Hyperlipidemia Hypothyroidism Insulin pump in place Major depressive disorder, recurrent Peripheral neuropathy Presbyopia Pseudophakia, both eyes Trigger thumb Tubular adenoma Type 1 diabetes mellitus with complication Procedure/Surgical History Colonoscopy| Service Date: 3CT of pelvis| Service Date: 06/19/2017Colonoscopy| Service Date: 05/13/2017CT head w/o contrast| Service Date: 02/26/2017[facility] medical services| Service Date: 02/26/2017Chest x-ray| Service Date: 02/26/2017CT brain w/o contrast| Service Date: 02/26/2017Plain chest X-ray (procedure)| Service Date: 02/26/2017Computed tomography of head without contrast (procedure)| Service Date: 02/26/2017Chest x-ray| Service Date: 02/09/2017[facility] medical services| Service Date: 02/09/2017Plain chest X-ray (procedure)| Service Date: 02/09/2017US ABDL AORTA SCREEN AAA| Service Date: 09/10/2016US scan of abdominal aorta (procedure)| Service Date: 09/10/2016FIT TEST| Service Date: 04/02/2016KUB X-ray| Service Date: 03/08/2015EKG| Service Date: 03/08/2015CEIOL - Cataract extraction and insertion of intraocular lens| Service Date: 07/02/2012skull x-ray-no mets| Service Date: 05/16/2012Implantation of radioactive seed into prostate| Service Date: G| Service Date: 03/08/2012prostate biopsy|Service Date: 02/20/2012eye exam-no retinopathy| Service Date: 10/18/2011bdomenal US-No AAA|Service Date: 10/16/2011Thumb surgery, right| Service Date: 07/07/2011Thumb surgery, left| Service Date: 12/14/2008Cystectomy| Service Date: 07/23/2008COLONOSCOPY -WNL except hemorrhoids|Service Date: 07/19/2006Cardiac Cath--WNL| Service Date: 04/08/1995Stress ECHO--FALSE POSITIVE--Normal CATH| Service Date: 04/08/1995 Family History Alive and well: Brother, Brother, Son, Son, Son, Son and Son. Cancer: Mother and Unknown. Heart attack: Father. Stroke: Unknown. Health Status Family Member(s) Family Member(s) Relationship: Mother, Age: 64 Years, Cause: Gastric CA Relationship: Father, Age: 50 Years, Cause: [place] Allergies NKA Care Team Physical Therapy [facility] Orthopedics Dental Dr. Grimaldo Other medical providers (e.g. Swager Operator, Orthopedist) Dr. Lawrence - Diabetic Specialist DME suppliers (e.g. CPAP, assistive devices) Insulin Pump- [facility] Other team members (e.g. Cardio Clinician, Supervisor Remelt) Cardio Clinician - Dr. Fried Recommendations Health Maintenance Pending(in the next year) OverDue Medicare Annual Wellness Visit due02/16/22and every 1year Adult Influenza Vaccine due10/06/23and every 1year Due Adult COVID-19 Vaccination due12/19/23Unknown Frequency Adult Social Determinants of Health Screening due12/19/23Unknown Frequency Due In Future Diabetic Eye Exam not due until05/24/24and every 731day Diabetes Management A1c not due until06/07/25and every 366day Satisfied(in the past 1 year) Satisfied Body Mass Index on12/19/23.Satisfied by [facility] Granados Kyla Diabetes Management A1c on09/12/23.Satisfied by Contributor_system, [email or web address] Diabetes Nephropathy Management on02/27/23.Satisfied by Contributor_system, [email or web address] Lipid Screening on01/21/23.Satisfied by Contributor[employer]system, [email or web address] Health Maintenance Schedule Colorectal Cancer Screening: Completed _ Diabetes screening: Completed _ Cholesterol screening: Completed _ HIV Screening: Completed _ Hepatitis C Screening: Ordered _ Lung Cancer Screening: N/A _ AAA Screening: N/A _ Mammography: N/A _ Osteoporosis: N/A _ Prostate Cancer Screening: Completed _ Welcome to Medicare ECG Screening: N/A _ Lab Results Reviewed Electronic Signature on File Electronically Reviewed/Signed by: Kehinde Morales MD Author Signature Dt/Tm:12/19/2023 12:23 PM Department of Family Medicine [facility] * MD Carmen, Kehinde Roland: PERFORM Event Display: Medicare Annual Wellness Visit Note Authored Date: [id number] Medication reconciliation was completed. AWV template not fully functional to capture this. Electronic Signature on File Electronically Reviewed/Signed by: Kehinde Morales MD Author Signature Dt/Tm:12/19/2023 12:43 PM Department of Family Medicine [facility] Patient Care team information Care Team Personnel Name: MD Morales Michael P Position: Physician - Family Med Member Role: Primary Care Provider Address: [address] [place] [address] [place] Name: MD Kowalski Wayne J Position: Physician - Sports Medicine [place] Member Role: Lifetime Relationship Address: [address] [place] [address] [place] Care Team Related Persons Name: LORAINE MERCER
--- OUTSIDE RECORDS SUMMARY | 2024-05-27 12:59 | External Medical Summary | Continuity of Care Document ---
Author Name Unknown Organization [facility] [address] [id number] Address [address] [place] [id number] Care Team Providers Care Distribution Sales Representative Name Role Phone Kehinde Morales Primary Care Physician [phone] [id number] Date[facility]s): 12/10/23 - 12/10/23 [facility] [address] [employer] [facility] [address] [facility] [address] [address] Encounter Diagnosis Bilateral shoulder pain(Discharge Diagnosis) - 12/10/23 Neck pain(Discharge Diagnosis) - 12/10/23 Discharge Disposition: Home or Self Care Attending Physician: MD Tucker Jesse Allergies, Adverse Reactions, Alerts No Known Allergies Immunizations Given and Recorded Vaccine Date Status Refusal Reason influenza virus vaccine, inactivated 1 12/14/22 Re [...] zoster vaccine live 10/22/11 Given 1Result Comment: [facility] 2Result Comment: [facility] Pharmacy 3Result Comment: [facility] 4Result Comment: 2021-02-16: Historical information-source unspecified 5Result Comment: [facility] pharmacy Medications aspirin 81 mg oral tablet Start: 05/25/11 1:41:00 PM EST, 1 tab, PO, Daily Start Date: 05/25/11 Status: Ordered BD 0.5 mL Ultra-Fine II Short Insulin Syringe 31G x 5/16" Start: 06/20/21 10:30:00 AM EDT, See Instructions, Disp# 100 each, Refills: 3, use PRN for pump failure, Pharmacy: [facility]/pharmacy #[id number] Start Date: 06/20/21 Status: Ordered Centrum Silver oral tablet Start: 05/25/11 1:41:00 PM EST, 1 tab, PO, Daily Start Date: 05/25/11 Status: Ordered Co Q-10 Start: 12/23/13 1:41:00 PM EDT, See Instructions, 200 mg, 1 tab po daily Start Date: 12/23/13 Status: Ordered Dexcom G6 Sensor Kit Start: 05/14/22 9:04:00 AM EST, See Instructions, Disp# 3 kit, Refills: 3, change sensor every 10 days, Note to Pharmacy: 1 kit = 3 sensors, Pharmacy: [facility]/pharmacy #[id number] Start Date: 05/14/22 Status: Ordered Dexcom G6 Transmitter Kit Start: 05/14/22 9:05:00 AM EST, See Instructions, Disp# 1 kit, Refills: 3, use as directed, Pharmacy:[facility]/pharmacy #[id number] Start Date: 05/14/22 Status: Ordered Gvoke HypoPen 1 mg/0.2 mL subcutaneous solution Start: 08/12/20 11:45:00 AM EDT, See Instructions, Disp# 2 each, Refills: 1, use PRN for severe hypoglycemia, Pharmacy: [facility]/pharmacy #[id number] Start Date: 08/12/20 Status: Ordered HumaLOG Vial 100 units/mL injectable solution Start: 07/24/23 4:22:00 PM EDT, See Instructions, Disp# 50 mL, Refills: 3, USE 50 UNITS UNDER THE SKIN DAILY VIA INSULIN PUMP, Pharmacy: [facility] Start Date: 07/24/23 Status: Ordered Lantus Vial 100 units/mL subcutaneous solution Start: 12/27/22 11:44:00 AM EDT, 12 unit =, subQ, Daily, Disp# 10 mL, Refills: 3, PRN in case of pump failure, Pharmacy: [facility]/pharmacy #[id number] Start Date: 12/27/22 Status: Ordered levothyroxine 137 mcg (0.137 mg) oral tablet Start: 10/03/23 3:46:00 PM EDT, 1 tab, PO, Daily, Disp# 90 tab, Refills: 4, Pharmacy: [id number] Start Date: 10/03/23 Status: Ordered lisinopril 30 mg oral tablet Start: 10/08/23 2:26:00 PM EDT, 1 tab, PO, Daily, Disp# 90 tab, Refills: 4, Pharmacy: [facility] [id number] Start Date: 10/08/23 Status: Ordered melatonin 3 mg oral tablet Start: 09/26/18 9:14:00 AM EDT, 1 tab, PO, qhs, PRN: Insomnia Start Date: 09/26/18 Status: Ordered One Touch Verio Test Strips Start: 12/27/22 11:46:00 AM EDT, See Instructions, Disp# 200 each, Refills: 5, check BG 2 x daily, [id number] Start Date: 12/27/22 Status: Ordered rosuvastatin 40 mg oral tablet Start: 10/08/23 2:20:00 PM EDT, 1 tab, PO, Daily, Disp# 90 tab, Refills: 4, [id number] Start Date: 10/08/23 Status: Ordered sertraline 50 mg oral tablet Start: 07/24/23 6:29:00 PM EDT, 1 tab, PO, Daily, Disp# 90 tab, Refills: 1, Pharmacy: [facility] [id number] Start Date: 07/24/23 Status: Ordered Sutab oral tablet Start: 09/06/22 6:27:00 AM EDT, See Instructions, Disp# 24 tab, Refills: 0, Follow endoscopy instructions for bowel prep. [employer] Medicare Coupon: BIN: [id number] PCN: CN Group: [id number] Member: [id number], Note to Pharmacy: [facility] Medicare Coupon: BIN: [id number]; PCN: CN; Group: [id number]; Member: [id number], Pharmacy: [facility]/pharmacy #[id number] Start Date: 09/06/22 Status: Ordered Turmeric Start: 03/18/18 1:18:00 PM EST, Turmeric, See Instructions, 500 mg, 1 cap po daily Start Date: 03/18/18 Status: Ordered Vitamin D3 2000 intl units oral capsule Start: 05/25/11 1:40:00 PM EST, See Instructions, 2 cap po daily Start Date: 05/25/11 Status: Ordered Mental Status 12/10/23 Barriers to Learning one year None evide nt Mandatory Health Literacy Documentation Yes Health Literacy Communication Barriers N ever Primary Language Mohawk Problem List Condition Confirmation Course Effective Dates [...] inical Service Informant Neck pain Discharge Diagnosis 12/10/23 Non-Specified Bilateral shoulder pain Discharge Diagnosis 12/10/23 Non-Specified Procedures Procedure Date Related Diagnosis Body [...] recent to oldest [Reference Range]: 1 Height 177 cm (12/10/23 12:58 PM) Patient Weight 81.8 kg (12/10/23 12:58 PM) Body Mass Index 26.11 kg/m2 (12/10/23 12:58 PM) Social History Social History Type Response Smoking Status Never smoked cigaret ezekiel Sex Male Sex Representation Male (finding) Patient Care team information Care Team Personnel Name: MD Carmen, Kehinde Roland Position: Physician - Family Med Member Role: Primary Care Provider Address: [address] [place] [address] [place] Name: MD Meghana, Chance Mccracken Position: Physician - Sports Medicine [place] Member Role: Lifetime Relationship Address: [address] [place] [address] [place] Care Team Related Persons Name: LORAINE MERCER
--- OUTSIDE RECORDS SUMMARY | 2024-05-27 12:59 | External Medical Summary | Continuity of Care Document ---
Author Name Unknown Organization [facility] [address] [place] [address] [place] [id number] Care Team Providers Care Supervisor Carding Name Role Phone Kehinde Morales Primary Care Physician [phone] [id number] Date(s): 01/02/24 - 01/02/24 [facility] [address] [facility] [address], [address], [address] [place] [id number] [phone] Encounter Diagnosis Type 1 diabetes mellitus with complication(Discharge Diagnosis) - 01/02/24 Pseudophakia, both eyes(Discharge Diagnosis) - 01/02/24 DM (diabetes mellitus), type 1(Discharge Diagnosis) - 01/02/24 Discharge Disposition: Home or Self Care Attending Physician: MD Fried David A Referring Physician: MD Fried David A Allergies, Adverse Reactions, Alerts No Known Allergies [...] 01/01/12 Give n SARS-CoV-2 (COVID-19) mRNA-vacc - [id number] 12/16/23 Recorded zoster vaccine, inactivated 3 05/28/22 [...] zoster vaccine live 10/22/11 Given 1Result Comment: [facility] 2Result Comment: [facility] Pharmacy 3Result Comment: [facility] 4Result Comment: 2021-02-16: Historical information-source unspecified 5Result Comment: [facility] pharmacy Medications aspirin 81 mg oral tablet Start: 05/25/11 1:41:00 PM EST, 1 tab, PO, Daily Start Date: 05/25/11 Status: Ordered BD 0.5 mL Ultra-Fine II Short Insulin Syringe 31G x 5/16" Start: 06/20/21 10:30:00 AM EDT, See Instructions, Disp# 100 each, Refills: 3, use PRN for pump failure, Pharmacy: [facility]/pharmacy #[id number] Start Date: 06/20/21 Status: Ordered Centrum [...] Pharmacy: 1 kit = 3 sensors, Pharmacy: [facility]/pharmacy #[id number] Start Date: 05/14/22 Status: Ordered Dexcom G6 Transmitter Kit Start: 05/14/22 9:05:00 AM EST, See Instructions, Disp# 1 kit, Refills: 3, use as directed, [id number] Start Date: 05/14/22 Status: Ordered Gvoke HypoPen 1 mg/0.2 mL subcutaneous solution Start: 08/12/20 11:45:00 AM EDT, See Instructions, Disp# 2 each, Refills: 1, use PRN for severe hypoglycemia, [id number] Start Date: 08/12/20 Status: Ordered HumaLOG Vial 100 units/mL injectable solution Start: 07/24/23 4:22:00 PM EDT, See Instructions, Disp# 50 mL, Refills: 3, USE 50 UNITS UNDER THE SKIN DAILY VIA INSULIN PUMP, Pharmacy: [facility] Start Date: 07/24/23 Status: Ordered Lantus Vial 100 units/mL subcutaneous solution Start: 12/27/22 11:44:00 AM EDT, 12 unit =, subQ, Daily, Disp# 10 mL, Refills: 3, PRN in case of pump failure, [id number] Start Date: 12/27/22 Status: Ordered levothyroxine 137 mcg (0.137 mg) oral tablet Start: 10/03/23 3:46:00 PM EDT, 1 tab, PO, Daily, Disp# 90 tab, Refills: 4, Pharmacy: [email or web address] [id number] Start Date: 10/03/23 Status: Ordered lisinopril 30 mg oral tablet Start: 10/08/23 2:26:00 PM EDT, 1 tab, PO, Daily, Disp# 90 tab, Refills: 4, Pharmacy: [email or web address] [id number] Start Date: 10/08/23 Status: Ordered melatonin 3 mg oral tablet Start: 09/26/18 9:14:00 AM EDT, 1 tab, PO, qhs, PRN: Insomnia Start Date: 09/26/18 Status: Ordered One Touch Verio Test Strips Start: 12/27/22 11:46:00 AM EDT, See Instructions, Disp# 200 each, Refills: 5, check BG 2 x daily, Pharmacy: [facility]/pharmacy #[id number] Start Date: 12/27/22 Status: Ordered rosuvastatin 40 mg oral tablet Start: 10/08/23 2:20:00 PM EDT, 1 tab, PO, Daily, Disp# 90 tab, Refills: 4, Pharmacy: [facility]/pharmacy #[id number] Start Date: 10/08/23 Status: Ordered sertraline 50 mg oral tablet Start: 07/24/23 6:29:00 PM EDT, 1 tab, PO, Daily, Disp# 90 tab, Refills: 1, Pharmacy: [id number] Start Date: 07/24/23 Status: Ordered Sutab oral tablet Start: 09/06/22 6:27:00 AM EDT, See Instructions, Disp# 24 tab, Refills: 0, Follow endoscopy instructions for bowel prep. [facility] Medicare Coupon: BIN: [id number] PCN: CN Group: [id number] Member: [id number], Note to Pharmacy: [facility] Medicare Coupon: BIN: [id number]; PCN: CN; Group: [id number]; Member: [id number], Pharmacy: [facility]/pharmacy #[id number] Start Date: 09/06/22 Status: Ordered Turmeric Start: 03/18/18 1:18:00 PM EST, Turmeric, See Instructions, 500 mg, 1 cap po daily Start Date: 03/18/18 Status: Ordered Vitamin D3 2000 intl units oral capsule Start: 05/25/11 1:40:00 PM EST, See Instructions, 2 cap po daily Start Date: 05/25/11 Status: Ordered Mental Status 01/02/24 Barriers to Learning one year None evide nt Communication Barrier Present No Health Literacy Communication Barriers N ever Primary Language Cape Verdean Problem List Condition Confirmation Course Effective Dates [...] Diagnosis Diagnosis Type Effective Dates Health Status Clinical Service Informant Type 1 diabetes mellitus with complication Discharge Diagnosis 01/02/24 Pseudophakia, both eyes Discharge Diagnosis 01/02/24 DM (diabetes mellitus), type 1 Discharge Diagnosis 01/02/24 Non-Specified Procedures Procedure Date Related Diagnosis Body [...] ezekiel Sex Male Sex Representation Male (finding) Ophthalmology Outpatient Note * MD Corky, Jean Claude Pollack: PERFORM, MODIFY, MODIFY, SIGN, VERIFY Event Display: Ophthalmology Outpt Note Authored Date: Patient: MARQUEZ NORRIS Age: 78 years Sex: Male : 1945 Associated Diagnoses: None Author: MD Fried David A Visit Information Chief Complaint: RTC from 05/24/22 for DM1 and IOL's. Pt states his dva is good. Pt feels he is using his bryanna glasses more. Pt denies flashes/ floaters and distortion. Pts last A1c was 7.5 History of Present Illness Patient is doing well with no significant change in visual acuity. Denies flashes or change in floaters. HbA1c 7.5 Health Status Problem List: Medical (Selected) Pseudophakia, both eyes / SNOMED CT 376985946 / Confirmed Type 1 diabetes mellitus with complication / SNOMED CT 915387965 / Confirmed All Problems (Selected) Pseudophakia, both eyes / SNOMED CT 256309201 / Confirmed Type 1 diabetes mellitus with complication / SNOMED CT 583591687 / Confirmed. Histories Problem list, past medical history, medications, allergies, family history, and social history reviewed and reconciled within the electronic health record Physical Examination Patient oriented to person, place, and time. No acute distress Visual Acuity Visual Acuity Right sc: 20/40 Left sc: 20/40 Both sc: Right PH: No Improvement Left PH: 20/30-2 Both PH: Visual Acuity Method: Snellen Visual Acuity Test Type: Line Pupil Measurements Pupils Equal: Yes Right RAPD In Dark: Negative APD Left RAPD In Dark: Negative APD Motility Ocular Motility: Versions Full Visual Saucedo Visual Saucedo: Normal by confrontation testing Right & Left Eye External External: Both eyes are within normal limits. Lids: Both eyes: Within normal limits. Lashes: Both eyes are within normal limits. Slit Lamp Exam Conjunctiva: Both eyes within normal limits. Cornea: Both eyes: Within normal limits. Anterior chamber: Both eyes within normal limits. Iris: Both eyes within normal limits. Lens: Right eye: Posterior chamber intraocular lens, Posterior capsular opacification ( Grade 1 ). Left eye: Posterior chamber intraocular lens. Posterior Segment Vitreous: Both eyes: Posterior vitreous detachment. Right eye: Posterior vitreous detachment. Left eye: Posterior vitreous detachment. Optic Disc: Both eyes: Within normal limits. Vessels: Both eyes are within normal limits. Macula: Right eye: Within normal limits. Left eye: Within normal limits, Epiretinal membrane. Periphery: Both eyes: Within normal limits. Impression and Plan Diagnosis: DM (diabetes mellitus), type 1 ([id number] E10.9, Discharge, Medical). Plan: DM. Doing well with no evidence of diabetic retinopathy. Pseudophakia. Excellent VA following cataract surgery. PVD with mild cellophane LE > RE . Patient Instructions: Counseling: Glucose, blood pressure, cholesterol control. Follow Up: In one year. Intraocular Pressure Intraocular Pressure Method: Tonopen Tonometry Time of Day: 09:38 Right Intraocular Pressure: 16 Left Intraocular Pressure: 16 Dilation Eye(s) Dilated: Both eyes Time Dilated: 09:38 Medication for Dilation: tropicamide 1% / phenylephrine 2.5% Classification Diabetic Retinopathy: Both eyes: No evidence of diabetic retinopathy. Electronic Signature on File Electronically Reviewed/Signed by: Jean Claude Fried MD Author Signature Dt/Tm:01/02/2024 09:56 AM Professor of Ophthalmology [facility] [address], [place], [place] [address] DAQ Patient Care team information Care Team Personnel Name: MD Carmen, Kehinde Roland Position: Physician - Family Med Member Role: Primary Care Provider Address: [address] [place] [address] Name: MD Meghana, Chance Mccracken Position: Physician - Sports Medicine [place] Member Role: Lifetime Relationship Address: [address] [facility] [address] [place] [address] [place] Care Team Related Persons Name: LORAINE MERCER
--- OUTSIDE RECORDS SUMMARY | 2024-05-27 12:59 | External Medical Summary | Continuity of Care Document ---
Author Name Unknown Organization [facility] [address] [id number] Care Team Providers Care Packing Attendant Name Role Phone Kehinde Morales Primary Care Physician [phone] [facility] [id number] Date(s): 04/15/24 - 04/15/24 [facility] [address] [facility] [address] [place] [address] Encounter Diagnosis Insulin pump in place(Discharge Diagnosis) - 04/15/24 Type 1 diabetes mellitus with complication(Discharge Diagnosis) - 04/15/24 Discharge Disposition: Home or Self Care Attending Physician: MD Arnol, Howard Mccann Allergies, Adverse Reactions, Alerts No Known Allergies [...] 01/01/12 Give n SARS-CoV-2 (COVID-19) mRNA-vacc - [id number] 12/16/23 Recorded zoster vaccine, inactivated 3 05/28/22 [...] zoster vaccine live 10/22/11 Given 1Result Comment: [facility] 2Result Comment: [facility] Pharmacy 3Result Comment: [facility] 4Result Comment: 2021-02-16: Historical information-source unspecified 5Result Comment: [facility] pharmacy Medications aspirin 81 mg oral tablet Start: 05/25/11 1:41:00 PM EST, 1 tab, PO, Daily Start Date: 05/25/11 Status: Ordered BD 0.5 mL Ultra-Fine II Short Insulin Syringe 31G x 5/16" Start: 06/20/21 10:30:00 AM EDT, See Instructions, Disp# 100 each, Refills: 3, use PRN for pump failure, Pharmacy: [facility]/pharmacy #[id number] Start Date: 06/20/21 Status: Ordered [...] Pharmacy: 1 kit = 3 sensors, Pharmacy: [facility]/pharmacy #[id number] Start Date: 05/14/22 Status: Ordered Dexcom G6 Transmitter Kit Start: 05/14/22 9:05:00 AM EST, See Instructions, Disp# 1 kit, Refills: 3, use as directed, [id number] Start Date: 05/14/22 Status: Ordered Gvoke HypoPen 1 mg/0.2 mL subcutaneous solution Start: 08/12/20 11:45:00 AM EDT, See Instructions, Disp# 2 each, Refills: 1, use PRN for severe hypoglycemia, [id number] Start Date: 08/12/20 Status: Ordered HumaLOG Vial 100 units/mL injectable solution Start: 02/27/24 12:50:00 PM EST, See Instructions, Disp# 10 mL, Refills: 0, USE 50 UNITS UNDER THE SKIN DAILY VIA INSULIN PUMP, [id number] Start Date: 02/27/24 Status: Ordered Lantus Vial 100 units/mL subcutaneous solution Start: 12/27/22 11:44:00 AM EDT, 12 unit =, subQ, Daily, Disp# 10 mL, Refills: 3, PRN in case of pump failure, [id number] Start Date: 12/27/22 Status: Ordered levothyroxine 137 mcg (0.137 mg) oral tablet Start: 10/03/23 3:46:00 PM EDT, 1 tab, PO, Daily, Disp# 90 tab, Refills: 4, Pharmacy: [facility] [id number] Start Date: 10/03/23 Status: Ordered lisinopril 30 mg oral tablet Start: 10/08/23 2:26:00 PM EDT, 1 tab, PO, Daily, Disp# 90 tab, Refills: 4, Pharmacy: [facility] [id number] Start Date: 10/08/23 Status: Ordered melatonin 3 mg oral tablet Start: 09/26/18 9:14:00 AM EDT, 1 tab, PO, qhs, PRN: Insomnia Start Date: 09/26/18 Status: Ordered One Touch Verio Test Strips Start: 12/27/22 11:46:00 AM EDT, See Instructions, Disp# 200 each, Refills: 5, check BG 2 x daily, [id number] Start Date: 12/27/22 Status: Ordered rosuvastatin 40 mg oral tablet Start: 10/08/23 2:20:00 PM EDT, 1 tab, PO, Daily, Disp# 90 tab, Refills: 4, Pharmacy: [facility] #[id number] Start Date: 10/08/23 Status: Ordered sertraline 50 mg oral tablet Start: 01/06/24 12:53:00 PM EDT, 1 tab, PO, Daily, Disp# 90 tab, Refills: 1, Pharmacy: [id number] Start Date: 01/06/24 Status: Ordered Sutab oral tablet Start: 09/06/22 6:27:00 AM EDT, See Instructions, Disp# 24 tab, Refills: 0, Follow endoscopy instructions for bowel prep. [facility] Medicare Coupon: BIN: [id number] PCN: CN Group: [id number] Member: [id number], Note to Pharmacy: [facility] Medicare Coupon: BIN: [id number]; PCN: CN; Group: [id number]; Member: [id number], [id number] Start Date: 09/06/22 Status: Ordered Turmeric Start: 03/18/18 1:18:00 PM EST, Turmeric, See Instructions, 500 mg, 1 cap po daily Start Date: 03/18/18 Status: Ordered Vitamin D3 2000 intl units oral capsule Start: 05/25/11 1:40:00 PM EST, See Instructions, 2 cap po daily Start Date: 05/25/11 Status: Ordered Problem List Condition Confirmation Course Effective Dates [...] 1 diabetes mellitus with complication Discharge Diagnosis 04/15/[address] Discharge Diagnosis 04/15/24 Procedures Procedure Date Related Diagnosis Body Site [...] Med Member Role: Primary Care Provider Address: [address] [place] [address] [place] Name: MD Meghana, Chance Mccracken Position: Physician - Sports Medicine [place] Member Role: Lifetime Relationship Address: [address] [place] [address] [place] Care Team Related Persons Name: LORAINE MERCER
--- OUTSIDE RECORDS SUMMARY | 2024-05-27 12:59 | External Medical Summary | Continuity of Care Document ---
Author Name Unknown Organization [facility] [address] Address [address] [place], [place] [id number] Care Team Providers Care Spine Supervisor Name Role Phone Kehinde Morales Primary Care Physician [phone] [id number] Date[facility]s): 04/10/24 - 04/10/24 [facility] [address] 1 [facility] [address] [place], [place] [phone] Encounter Diagnosis Essential (primary) hypertension(Final) - Hyperlipidemia, unspecified(Final) - Hypothyroidism, unspecified(Final) - Major depressive disorder, recurrent, unspecified(Final) - Type 1 diabetes mellitus with unspecified complications(Final) - Encounter for general adult medical examination without abnormal findings(Final) - Discharge Disposition: Home or Self Care Attending Physician: MD Morales Michael P Referring Physician: MD Morales Michael P Allergies, Adverse [...] 01/01/12 Give n SARS-CoV-2 (COVID-19) mRNA-vacc - [id number] 12/16/23 Recorded zoster vaccine, inactivated 3 05/28/22 [...] zoster vaccine live 10/22/11 Given 1Result Comment: [facility] 2Result Comment: [facility] Pharmacy 3Result Comment: [facility] 4Result Comment: 2021-02-16: Historical information-source unspecified 5Result Comment: [facility] pharmacy Medications aspirin 81 mg oral tablet Start: 05/25/11 1:41:00 PM EST, 1 tab, PO, Daily Start Date: 05/25/11 Status: Ordered BD 0.5 mL Ultra-Fine II Short Insulin Syringe 31G x 5/16" Start: 06/20/21 10:30:00 AM EDT, See Instructions, Disp# 100 each, Refills: 3, use PRN for pump failure, Pharmacy: [facility]/pharmacy #[id number] Start Date: 06/20/21 Status: Ordered [...] Pharmacy: 1 kit = 3 sensors, Pharmacy: [facility]/pharmacy #[id number] Start Date: 05/14/22 Status: Ordered Dexcom G6 Transmitter Kit Start: 05/14/22 9:05:00 AM EST, See Instructions, Disp# 1 kit, Refills: 3, use as directed, [id number] Start Date: 05/14/22 Status: Ordered Gvoke HypoPen 1 mg/0.2 mL subcutaneous solution Start: 08/12/20 11:45:00 AM EDT, See Instructions, Disp# 2 each, Refills: 1, use PRN for severe hypoglycemia, [id number] Start Date: 08/12/20 Status: Ordered HumaLOG Vial 100 units/mL injectable solution Start: 02/27/24 12:50:00 PM EST, See Instructions, Disp# 10 mL, Refills: 0, USE 50 UNITS UNDER THE SKIN DAILY VIA INSULIN PUMP, [id number] Start Date: 02/27/24 Status: Ordered Lantus Vial 100 units/mL subcutaneous solution Start: 12/27/22 11:44:00 AM EDT, 12 unit =, subQ, Daily, Disp# 10 mL, Refills: 3, PRN in case of pump failure, [id number] Start Date: 12/27/22 Status: Ordered levothyroxine 137 mcg (0.137 mg) oral tablet Start: 10/03/23 3:46:00 PM EDT, 1 tab, PO, Daily, Disp# 90 tab, Refills: 4, Pharmacy: [facility] [id number] Start Date: 10/03/23 Status: Ordered lisinopril 30 mg oral tablet Start: 10/08/23 2:26:00 PM EDT, 1 tab, PO, Daily, Disp# 90 tab, Refills: 4, Pharmacy: [facility] [id number] Start Date: 10/08/23 Status: Ordered melatonin 3 mg oral tablet Start: 09/26/18 9:14:00 AM EDT, 1 tab, PO, qhs, PRN: Insomnia Start Date: 09/26/18 Status: Ordered One Touch Verio Test Strips Start: 12/27/22 11:46:00 AM EDT, See Instructions, Disp# 200 each, Refills: 5, check BG 2 x daily, Pharmacy: [facility]/pharmacy #[id number] Start Date: 12/27/22 Status: Ordered rosuvastatin 40 mg oral tablet Start: 10/08/23 2:20:00 PM EDT, 1 tab, PO, Daily, Disp# 90 tab, Refills: 4, Pharmacy: [facility]/pharmacy #[id number] Start Date: 10/08/23 Status: Ordered sertraline 50 mg oral tablet Start: 01/06/24 12:53:00 PM EDT, 1 tab, PO, Daily, Disp# 90 tab, Refills: 1, Pharmacy: [facility] STORE [id number] Start Date: 01/06/24 Status: Ordered Sutab oral tablet Start: 09/06/22 6:27:00 AM EDT, See Instructions, Disp# 24 tab, Refills: 0, Follow endoscopy instructions for bowel prep. S[facility] Medicare Coupon: BIN: [id number] PCN: CN Group: [id number] Member: [id number], Note to Pharmacy: [facility] Medicare Coupon: BIN: [id number]; PCN: CN; Group: [id number]; Member: [id number], Pharmacy: [facility]/pharmacy #[id number] Start Date: 09/06/22 Status: Ordered [...] 2Tubular Adenoma-- repeat COLO in 3 years. Procedures Procedure Date Related Diagnosis Body Site [...] head 19repeat 10 years per colonoscopy report Results Laboratory List Name Date Basic Metabolic Panel (BASIC METAB PANEL ) 04/10/24 Hemoglobin A1C (HEMOGLOBIN, A1C) 04/10/24 Lipid Profile (LIPOPROTEINS) 04/10/24 Prostate Specific Antigen (PSA, TOTAL) Most recent to oldest [Reference Range]: 1 eGFR CKD-EPI [>60 mL/min/1.73 m2] 77 mL/ min/1.73 m2 1 (04/10/24 7:17 AM) Estimated Average Glucose 174 mg/dL 2 (04/10/24 7:17 AM) Non-HDL 122 mg/dL 3 (04/10/24 7:17 AM) PSA, Total [<6.51 ng/mL] <0.05 ng/mL (04/10/24 7:17 AM) Estimated CrCl 61.54 mL/min (04/10/24 7:53 AM) Anion Gap [5-14 mmol/L] 7 mmol/L (04/10/24 7:17 AM) BUN [7-20 mg/dL] 22 mg/dL *HI* (04/10/24 7:17 AM) Ca [8.4-10.2 mg/dL] 9.3 mg/dL (04/10/24 7:17 AM) Chol/HDL 3 (04/10/24 7:17 AM) Chol [125-200 mg/dL] 192 mg/dL (04/10/24 7:17 AM) Cl- [96-107 mmol/L] 103 mmol/L (04/10/24 7:17 AM) HCO3 [22-30 mmol/L] 29 mmol/L (04/10/24 7:17 AM) Cret [0.70-1.30 mg/dL] 1.00 mg/dL (04/10/24 7:17 AM) HbA1c [4.0-6.0 %] 7.7 % *HI* (04/10/24 7:17 AM) Glu [74-106 mg/dL] 117 mg/dL *HI* (04/10/24 7:17 AM) HDL [>35 mg/dL] 70 mg/dL (04/10/24 7:17 AM) K [3.5-5.1 mmol/L] 4.1 mmol/L (04/10/24 7:17 AM) LDL Chol, Calculated [50-130 mg/dL] 97 m g/dL (04/10/24 7:17 AM) Na [137-145 mmol/L] 139 mmol/L (04/10/24 7:17 AM) TG [<200 mg/dL] 123 mg/dL (04/10/24 7:17 AM) 1Result Comment: Testing Performed By: Dept of Pathology [facility], [address] [place] [address] 2Result Comment: Testing Performed By: Dept of Pathology [facility], [address] [place] [id number] 3Result Comment: Testing Performed By: Dept of Pathology [facility], [address] [place] [id number] Social History Social History Type Response Smoking Status Never smoked cigaret ezekiel Sex Male Sex Representation Male (finding) Patient Care team information Care Team Personnel Name: MD Carmen, Kehinde Roland Position: Physician - Family Med Member Role: Primary Care Provider Address: [address] [place] [address] [place] Name: MD Kowalski Wayne J Position: Physician - Sports Medicine [place] Member Role: Lifetime Relationship Address: [address] [place] [address] [place] Care Team Related Persons Name: LORAINE MERCER
--- OUTSIDE RECORDS SUMMARY | 2024-05-27 12:59 | External Medical Summary | Continuity of Care Document ---
Author Name Unknown Organization [facility] [address] [id number] Care Team Providers Care Traffic Division Commanding Officer Name Role Phone Kehinde Morales Primary Care Physician [phone] [id number] Date(s): 12/31/23 - 12/31/23 [facility] [address] [facility] [address] [address] Encounter Diagnosis Type 1 diabetes mellitus with complication(Discharge Diagnosis) - 12/31/[address](Discharge Diagnosis) - 12/31/23 Discharge Disposition: Home or Self Care Attending Physician: JEOVANNY Briggs Amie Referring Physician: MD Morales Michael P Allergies, Adverse Reactions, Alerts No Known Allergies Assessment and Plan Extracted from: Title:TeleHealth Visit Note Author:JEOVANNY Briggs Amie Date:12/31/23 1.Type 1 diabetes mellitus with complication - Continue current pump settings. - Update to Dexcom G7. - Download between visits as needed. - A1c ordered for prior to next visit. 2.Insulin pump in place Follow up as scheduled with Dr. Ambrose in March and September and myself in June. We will schedule another visit in 1 year. Immunizations Given and Recorded Vaccine Date Status [...] 01/01/12 Give n SARS-CoV-2 (COVID-19) mRNA-vacc - [id number] 12/16/23 Recorded zoster vaccine, inactivated 3 05/28/22 [...] vaccine live 10/22/11 Given 1Result Comment: [facility] 2Result Comment: [facility] Pharmacy 3Result Comment: [facility] 4Result Comment: 2021-02-16: Historical information-source unspecified 5Result Comment: [facility] pharmacy Medications aspirin 81 mg oral tablet Start: 05/25/11 1:41:00 PM EST, 1 tab, PO, Daily Start Date: 05/25/11 Status: Ordered BD 0.5 mL Ultra-Fine II Short Insulin Syringe 31G x /" Start: 06/20/21 10:30:00 AM EDT, See Instructions, Disp# 100 each, Refills: 3, use PRN for pump failure, Pharmacy: [facility]/pharmacy #[id number] Start Date: 06/20/21 Status: Ordered Centrum Silver [...] 1 kit = 3 sensors, Pharmacy: [facility]/pharmacy #[id number] Start Date: 05/14/22 Status: Ordered Dexcom G6 Transmitter Kit Start: 05/14/22 9:05:00 AM EST, See Instructions, Disp# 1 kit, Refills: 3, use as directed, Pharmacy:[facility]/pharmacy #[id number] Start Date: 05/14/22 Status: Ordered Gvoke HypoPen 1 mg/0.2 mL subcutaneous solution Start: 08/12/20 11:45:00 AM EDT, See Instructions, Disp# 2 each, Refills: 1, use PRN for severe hypoglycemia, Pharmacy: [facility] #[id number] Start Date: 08/12/20 Status: Ordered HumaLOG Vial 100 units/mL injectable solution Start: 07/24/23 4:22:00 PM EDT, See Instructions, Disp# 50 mL, Refills: 3, USE 50 UNITS UNDER THE SKIN DAILY VIA INSULIN PUMP, Pharmacy: [facility] Start Date: 07/24/23 Status: Ordered Lantus Vial 100 units/mL subcutaneous solution Start: 12/27/22 11:44:00 AM EDT, 12 unit =, subQ, Daily, Disp# 10 mL, Refills: 3, PRN in case of pump failure, [id number] Start Date: 12/27/22 Status: Ordered levothyroxine 137 mcg (0.137 mg) oral tablet Start: 10/03/23 3:46:00 PM EDT, 1 tab, PO, Daily, Disp# 90 tab, Refills: 4, Pharmacy: [facility] STORE [id number] Start Date: 10/03/23 Status: Ordered lisinopril 30 mg oral tablet Start: 10/08/23 2:26:00 PM EDT, 1 tab, PO, Daily, Disp# 90 tab, Refills: 4, Pharmacy: [facility] [id number] Start Date: 10/08/23 Status: Ordered melatonin 3 mg oral tablet Start: 09/26/18 9:14:00 AM EDT, 1 tab, PO, qhs, PRN: Insomnia Start Date: 09/26/18 Status: Ordered One Touch Verio Test Strips Start: 12/27/22 11:46:00 AM EDT, See Instructions, Disp# 200 each, Refills: 5, check BG 2 x daily, [id number] Start Date: 12/27/22 Status: Ordered rosuvastatin 40 mg oral tablet Start: 10/08/23 2:20:00 PM EDT, 1 tab, PO, Daily, Disp# 90 tab, Refills: 4, Pharmacy: [facility]/pharmacy #[id number] Start Date: 10/08/23 Status: Ordered sertraline 50 mg oral tablet Start: 07/24/23 6:29:00 PM EDT, 1 tab, PO, Daily, Disp# 90 tab, Refills: 1, Pharmacy: [facility] STORE [id number] Start Date: 07/24/23 Status: Ordered Sutab oral tablet Start: 09/06/22 6:27:00 AM EDT, See Instructions, Disp# 24 tab, Refills: 0, Follow endoscopy instructions for bowel prep. [facility] Medicare Coupon: BIN: [id number] PCN: CN Group: [id number] Member: [id number], Note to Pharmacy: [facility] Medicare Coupon: BIN: [id number]; PCN: CN; Group: [id number]; Member: [id number], [id number] Start Date: 09/06/22 Status: Ordered Turmeric [...] Effective Dates Health Status Clinical Service Informant Insulin pump in place Discharge Diagnosis 12/31/23 Non-Specified Type 1 diabetes mellitus with complication Discharge Diagnosis 12/31/23 Non-Specified Procedures Procedure Date Related Diagnosis Body [...] ezekiel Sex Male Sex Representation Male (finding) Endocrinology Outpatient Note * JEOVANNY Briggs Amie: PERFORM Event Display: Endocrinology Outpt Note Authored Date: [id number] TeleHealth Visit Note I have confirmed the patients name and date of . The patient has consented to this service,and I have advised the patient that this is a billable visit for which they may be subject to a copay. The patient initiated this visit after they were informed of the availability of TeleHealth for this medically necessary visit. I am located at my office. The patient is located at home. This visit was conducted via live audio/video technology via [employer]. 12/31/23 Chief Complaint Type 1 diabetes follow up History of Present Illness Patient overall is doing well. He reports last night he had some fluctuating glucose levels. We discussed possible causes. He had chili for dinner which can be more difficult to count. He also changed his set and his sensor and transmitter yesterday and we did discuss sometimes more inaccuracies with the Dexcom on the first day. He continues on the Tandem X2 pump with Dexcom G6 and control IQ. Weare linked on Dexcom Clarity and I reviewed data today. That showed an average glucose of 148 with 78% time in range. Overnight is usually very stable with the exception of last night. There is a trend of glucose rising after breakfast but it comes down shortly after that and he typically is walking his dog in the morning as well. There was not a clear pattern to adjust his settings so he will continue on his current pump settings. We discussed the software update for Dexcom G7. We will send him instructions on completing the update. He could be scheduled with one of our diabetes educators for assistance if needed. We reviewed his recent labs. His A1c was stable at 7.5%. We discussed possibly getting this closer to 7 without more hypoglycemia. Based on his age the 7.5 is probably reasonable as well. His other labs were good. He is scheduled to see ophthalmology later this week. Physical Exam Alert and oriented, no acute distress Skin tone normal Breathing rate normal, non-labored respirations Mood appropriate Assessment/Plan 1.Type 1 diabetes mellitus with complication - Continue current pump settings. - Update to Dexcom G7. - Download between visits as needed. - A1c ordered for prior to next visit. 2.Insulin pump in place Follow up as scheduled with Dr. Ambrose in March and September and myself in June. We will schedule another visit in 1 year. Attestation Telehealthvisit with patient lasted approximately 34 minutes with >50% spent in counseling, education and coordination of care. Problem List/Past Medical History Ongoing Azotemia ED (erectile dysfunction) Health care maintenance Hemorrhoids without complication History of prostate cancer HTN (hypertension) Hyperlipidemia Hypothyroidism Insulin pump in place Major depressive disorder, recurrent Peripheral neuropathy Presbyopia Pseudophakia, both eyes Trigger thumb Tubular adenoma Type 1 diabetes mellitus with complication Medications aspirin(aspirin 81 mg oral tablet), 81 mg= [...] Q-10), See Instructions unlisted medication(Turmeric), See Instructions Allergies NKA Lab Results December 2023 A1c 7.5%, other labs reviewed in chart Electronic Signature on File CC: Kehinde Morales MD [address] [place] [address] Electronically Reviewed/Signed by: Niya Briggs PA-C Author Signature Dt/Tm:12/31/2023 11:24 AM Division of Endocrinology [facility] Patient Care team information Care Team Personnel Name: MD Morales Michael P Position: Physician - Family Med Member Role: Primary Care Provider Address: [address] [place] [address] [place] Name: MD Kowalski Wayne J Position: Physician - Sports Medicine [place] Member Role: Lifetime Relationship Address: [address] [place] [address] [place] Care Team Related Persons Name: LORAINE MERCER
--- OUTSIDE RECORDS SUMMARY | 2024-05-27 12:59 | External Medical Summary | Continuity of Care Document ---
Author Name Unknown Organization [facility] [address] Address [address] [place], [place] [id number] Care Team Providers Care Hull Molder Name Role Phone Kehinde Morales Primary Care Physician [phone] [id number] Date(s): 12/25/23 - 12/25/23 [facility] [address] [facility] [address], [facility] 1 [place], [phone] Encounter Diagnosis Presence of insulin pump (external) (internal)(Final) - Type 1 diabetes mellitus with unspecified complications(Final) - Discharge Disposition: Home or Self Care Attending Physician: MD Ambrose Chris Y Referring Physician: MD Ambrose Chris Y Allergies, Adverse Reactions, Alerts No Known Allergies [...] 01/01/12 Give n SARS-CoV-2 (COVID-19) mRNA-vacc - [id number] 12/16/23 Recorded zoster vaccine, inactivated 3 05/28/22 Recorded zoster vaccine, inactivated 11/16/22 Recorded SARS-CoV-2 (COVID-19) mRNA BNT-162b2 vax 4 12/13/20 Recorded tetanus/diphtheria/pertuss, acel (Tdap) 5 04/11/19 Recorded tetanus/diphtheria/pertuss, acel (Tdap) 05/25/11 G iven pneumococcal 23-valent vaccine 06/12/18 Given pneumococcal 23-valent vaccine 09/28/11 Given pneumococcal 13-valent vaccine 06/15/14 Given hepatitis B adult vaccine 04/15/12 Given hepatitis B adult vaccine 10/29/11 Given hepatitis B adult vaccine 09/28/11 Given zoster vaccine live 10/22/11 Given 1Result Comment: [facility] 2Result Comment: [facility] Pharmacy 3Result Comment: [facility] 4Result Comment: 2021-02-16: Historical information-source unspecified 5Result Comment: [facility] pharmacy Medications aspirin 81 mg oral tablet Start: 05/25/11 1:41:00 PM EST, 1 tab, PO, Daily Start Date: 05/25/11 Status: Ordered BD 0.5 mL Ultra-Fine II Short Insulin Syringe 31G x 5/16" Start: 06/20/21 10:30:00 AM EDT, See Instructions, Disp# 100 each, Refills: 3, use PRN for pump failure, Pharmacy: [facility]/pharmacy #[id number] Start Date: 06/20/21 Status: Ordered Centrum Silver [...] 1 kit = 3 sensors, Pharmacy: [facility]/pharmacy #[id number] Start Date: 05/14/22 Status: Ordered Dexcom G6 Transmitter Kit Start: 05/14/22 9:05:00 AM EST, See Instructions, Disp# 1 kit, Refills: 3, use as directed, Pharmacy:[facility]/pharmacy #[id number] Start Date: 05/14/22 Status: Ordered Gvoke HypoPen 1 mg/0.2 mL subcutaneous solution Start: 08/12/20 11:45:00 AM EDT, See Instructions, Disp# 2 each, Refills: 1, use PRN for severe hypoglycemia, [id number] Start Date: 08/12/20 Status: Ordered HumaLOG Vial 100 units/mL injectable solution Start: 07/24/23 4:22:00 PM EDT, See Instructions, Disp# 50 mL, Refills: 3, USE 50 UNITS UNDER THE SKIN DAILY VIA INSULIN PUMP, Pharmacy: [facility] Start Date: 07/24/23 Status: Ordered Lantus Vial 100 units/mL subcutaneous solution Start: 12/27/22 11:44:00 AM EDT, 12 unit =, subQ, Daily, Disp# 10 mL, Refills: 3, PRN in case of pump failure, [id number] Start Date: 12/27/22 Status: Ordered levothyroxine 137 mcg (0.137 mg) oral tablet Start: 10/03/23 3:46:00 PM EDT, 1 tab, PO, Daily, Disp# 90 tab, Refills: 4, Pharmacy: [facility] [id number] Start Date: 10/03/23 Status: Ordered lisinopril 30 mg oral tablet Start: 10/08/23 2:26:00 PM EDT, 1 tab, PO, Daily, Disp# 90 tab, Refills: 4, Pharmacy: [facility] [id number] Start Date: 10/08/23 Status: Ordered melatonin 3 mg oral tablet Start: 09/26/18 9:14:00 AM EDT, 1 tab, PO, qhs, PRN: Insomnia Start Date: 09/26/18 Status: Ordered One Touch Verio Test Strips Start: 12/27/22 11:46:00 AM EDT, See Instructions, Disp# 200 each, Refills: 5, check BG 2 x daily, Pharmacy: [facility]/pharmacy #[id number] Start Date: 12/27/22 Status: Ordered rosuvastatin 40 mg oral tablet Start: 10/08/23 2:20:00 PM EDT, 1 tab, PO, Daily, Disp# 90 tab, Refills: 4, Pharmacy: [facility] #[id number] Start Date: 10/08/23 Status: Ordered sertraline 50 mg oral tablet Start: 07/24/23 6:29:00 PM EDT, 1 tab, PO, Daily, Disp# 90 tab, Refills: 1, Pharmacy: [facility] [id number] Start Date: 07/24/23 Status: Ordered Sutab oral tablet Start: 09/06/22 6:27:00 AM EDT, See Instructions, Disp# 24 tab, Refills: 0, Follow endoscopy instructions for bowel prep. [facility] Medicare Coupon: BIN: [id number] PCN: CN Group: [id number] Member: [id number], Note to Pharmacy: [facility] Medicare Coupon: BIN: [id number]; PCN: CN; Group: [id number]; Member: [id number], Pharmacy: [facility][id number] Start Date: 09/06/22 Status: Ordered Turmeric [...] colonoscopy report Results Laboratory List Name Date Hemoglobin A1C (HEMOGLOBIN, A1C) 12/25/23 Lipid Profile (LIPOPROTEINS) 12/25/23 Microalbumin, Urine, Random (MICROALBUMI N, RD UR) 12/25/23 Most recent to oldest [Reference Range]: 1 Estimated Average Glucose 169 mg/dL 1 (12/25/23 7:13 AM) Non-HDL 92 mg/dL 2 (12/25/23 7:13 AM) Micro Alb (u) [<2.00 mg/dL] <1.20 mg/dL (12/25/23 7:13 AM) Chol/HDL 3 (12/25/23 7:13 AM) Chol [125-200 mg/dL] 146 mg/dL (12/25/23 7:13 AM) HbA1c [4.0-6.0 %] 7.5 % *HI* (12/25/23 7:13 AM) HDL [>35 mg/dL] 54 mg/dL (12/25/23 7:13 AM) LDL Chol, Calculated [50-130 mg/dL] 74 m g/dL (12/25/23 7:13 AM) Micro Alb Ratio [<20 ug/mg cret] NOT BOSSMAN CULATED ug/mg cret (12/25/23 7:13 AM) TG [<200 mg/dL] 90 mg/dL (12/25/23 7:13 AM) Creat (u) 42.59 mg/dL 3 (12/25/23 7:13 AM) 1Result Comment: Testing Performed By: Dept of Pathology [facility] [address], [address] [facility], [place] [address] 2Result Comment: Testing Performed By: Dept of Pathology [facility] [address], [address] [facility], [place] [address] 3Result Comment: Reference Range for Random Urine Not Established. Social History Social History Type Response Smoking Status Never smoked cigaret ezekiel Sex Male Sex Representation Male (finding) Patient Care team information Care Team Personnel Name: MD Carmen, Kehinde Roland Position: Physician - Family Med Member Role: Primary Care Provider Address: [address] [facility] [address] [place] [address] Name: MD Meghana, Chance Mccracken Position: Physician - Sports Medicine [place] Member Role: Lifetime Relationship Address: [address] [facility] [address] [place] [id number] Care Team Related Persons Name: LORAINE MERCER
[2024-05-27 14:11] LABS: Influenza A virus by PCR Negative (Neg); Influenza B virus by PCR Negative (Neg); RSV by PCR Negative (Neg); SARS CoV2 RNA(COVID-19) Ceph NEGATIVE (Negative)
[2024-05-27] MEDS: SODIUM CHLORIDE 0.9% 500 ML IV SCH (14:45)
[2024-05-27] MEDS ORDERED: GLUCAGON FOR INJ 1 MG VIAL SQ PRN (15:45)
[2024-05-27] MEDS ORDERED: CARBOHYDRATES FOR HYPOGLYCEMIA PO PRN (15:45)
[2024-05-27] MEDS ORDERED: GLUCOSE 40% GEL 15 GM TUBE PO PRN (15:45)
[2024-05-27] MEDS ORDERED: GLUCOSE 10 TAB/TUBE PO PRN (15:45)
[2024-05-27] MEDS ORDERED: ACETAMINOPHEN 325 MG TAB PO PRN (15:45)
[2024-05-27] MEDS ORDERED: DEXTROSE 50% 50 ML SYRINGE IV PRN (15:45)
[2024-05-27] MEDS ORDERED: ONDANSETRON INJ 2 MG/ML 2 ML VIAL IV PRN (15:45)
[2024-05-27 16:06] LABS: Thyroid Stimulating Hormone 7.146 uIu/ml (0.300-4.500)
[2024-05-27] MEDS: LEVOTHYROXINE SODIUM 150 MCG TABLET PO SCH (16:22)
[2024-05-27] MEDS: ASPIRIN 81 MG ECTAB PO SCH (16:22)
[2024-05-27] MEDS: lisinopril 40 MG TAB PO SCH (16:22)
--- NOTE | 2024-05-27 16:36 | XCELERA ---
[id number] \\ISCV-[email or web address]\[email or web address]_[email or web address]\[id number]
[2024-05-27 16:37] LABS: T4 Free Thyroxine 1.63 ng/dl (0.61-1.60)
[2024-05-27] MEDS: ROSUVASTATIN CALCIUM 20 MG TAB PO SCH (21:43)
[2024-05-27] MEDS ORDERED: PHARMACY GLYCEMIC MGMT CONSULT PRN (22:23)
[2024-05-28] MEDS ORDERED: INSULIN ASPART 100 UNITS/ML VIAL SC PRN (01:30)
[2024-05-28 07:44] LABS: Basophils # (auto) 0.04 K/uL (0.00-0.20); Basophils % (auto) 0.5 %; Eosinophils # (auto) 0.22 K/uL (0.00-0.50); Eosinophils % (auto) 2.8 %; Hematocrit (blood only) 38.6 % (42.0-52.0); Hemoglobin 12.9 g/dl (14.0-18.0); Immature Granulocytes # (auto) 0.03 K/uL (0.01-0.20); Immature Granulocytes % (auto) 0.4 %; Lymphocytes # (auto) 1.58 K/uL (1.20-3.40); Lymphocytes % (auto) 20.1 %; Mean Corpuscular Hgb Conc 33.4 g/dL (32.0-36.0); Mean Corpuscular Volume 92.8 fL (80.0-100.0); Mean Platelet Volume 9.7 fL (9.4-12.4); Monocytes # (auto) 0.73 K/uL (0.11-0.59); Monocytes % (auto) 9.3 %; Neutrophils # (auto) 5.25 K/uL (1.40-6.50); Neutrophils % (auto) 66.9 %; Platelet Count 228 K/uL (130-400); RDW Coefficient of Variation 14.2 % (11.5-14.5); RDW Standard Deviation 48.6 fL (36.4-46.3); Red Blood Count 4.16 M/uL (4.70-6.10); White Blood Count 7.85 K/ul (4.8-10.8)
[2024-05-28 08:11] LABS: Albumin Globulin Ratio 1.2 (0.9-2); Albumin Level 3.9 gm/dl (3.4-5.0); BUN Creatinine Ratio 16.5 (10-20); Bilirubin,Total 0.6 mg/dl (0.2-1.0); Calcium 9.4 mg/dl (8.6-10.3); Creatinine Clr Calc Pharmacy 76.3 ml/min; Globulin 3.3 gm/dl (2.5-4.0); Magnesium 1.7 mg/dl (1.7-2.4); Potassium 3.9 mmol/L (3.5-5.1); Total Protein 7.2 gm/dl (6.0-8.3)
[2024-05-28] MEDS: INSULIN, Rapid-Acting PUMP SCH (09:02)
[2024-05-28] MEDS: Continuous Glucose Monitor SCH (09:02)
[2024-05-28 11:16] VITALS: RESP 18
[2024-05-28 11:17] VITALS: PULSE 68; TEMP 98; O2SAT 97
[2024-05-28 12:05] VITALS: BP 191/72
== END 2024-05-28 12:30 | disposition home or self-care (01) ==
LOC: ED 10:06 → 2N 10:06 → SUATTDRO 15:05